=== PATIENT | female | born 1960 | race Caucasian/White ===

== ENCOUNTER 2016-11-26 14:10 | Emergency (ER) | payer MEDICARE ==
[2016-11-26] MEDS ORDERED: Metoprolol Tartrate 50 MG TAB ONE (15:02)
[2016-11-26] MEDS ORDERED: Ondansetron ODT 4 MG TAB ONE (15:02)
[2016-11-26] MEDS ORDERED: methylPREDNISolone Sod Succ/PF 125 MG/2 ML VIAL ONE (15:02)
--- NOTE | 2016-11-26 15:46 | ERRECORD ---
[facility] EMERGENCY RECORD HPI COUGH (14:46 RWAG) CHIEF COMPLAINT: Patient presents for evaluation of cough, productive of white sputum. HISTORIAN: History provided by patient, Dx flu 2weels ago. "cough and nausea for two weeks". LOCATION: Symptoms are generalized. QUALITY: Unable to describe the quality of the pain. SEVERITY: Maximum severity of symptoms mild, Currently symptoms are mild, Maximum severity of pain rated as 2/10, Current severity of pain rated as 2/10. TIME COURSE: Patient unable to describe onset of symptoms, There has been no change in the patient's symptoms over time. ASSOCIATED WITH: Associated with nausea. EXACERBATED BY: Patient's condition exacerbated by nothing. RELIEVED BY: Patient's condition relieved by nothing. ROS (14:49 RWAG) CONSTITUTIONAL: Historian reports chills. EYES: Negative eye review of systems. ENT: Negative ears, nose, throat review of systems. CARDIOVASCULAR: Negative cardiovascular review of systems. RESPIRATORY: Negative respiratory review of systems. GI: Historian reports nausea. GENITOURINARY FEMALE: Negative genitourinary review of systems. MUSCULOSKELETAL: Negative musculoskeletal review of systems. SKIN: Negative skin review of systems. NEUROLOGIC: Negative neurologic review of systems. ENDOCRINE: Negative endocrine review of systems. HEMO/LYMPHATIC: Normal hematologic/lymphatic system review. ALLERGIC/IMMUNOLOGIC: Normal allergy/immunologic system review. PSYCHIATRIC: Negative psychiatric review of systems. NOTES: All systems reviewed, negative except as described above. PAST MEDICAL HISTORY (14:31 [facility]) MEDICAL HISTORY: Flu vaccine up to date, Tetanus not up to date, Pneumococcal vaccine up to date, Past medical history includes cardiac history, history of hyperlipidemia. high cholesterol, Past medical history includes history of hypertension, Past medical history includes cardiac history, coronary artery disease, Past medical history includes history of diabetes, Past medical history includes gastrointestinal disease, hiatal hernia, Past medical history includes history of hyperlipidemia, high cholesterol, currently being treated, Past medical history includes history of hypertension, which has been treated, Past medical history includes history of obesity. CONSTIPATION,. FEMALE SURGICAL HISTORY: veins stripping, vericous veins, cleft palate. PSYCHIATRIC HISTORY: Notes: nervous breakdown . &a-1R&a+25V*p+0X*[id number]*c202B*c15G*c2P*p-0X&a-25V&a+1R Name: Tania Saldivar : 1960 F56 MedRec[id number] [id number] Prepared: TueNov 26, 2016 16:18 by Interface Page 1 of 4 pMD [facility] EMERGENCY RECORD SOCIAL HISTORY: Patient denies alcohol use, Patient denies drug use, Patient has no smoking history, Lives at home, with family. KNOWN ALLERGIES Penicillins: Reaction: Hives, Severity: Moderate, Source: Patient CURRENT MEDICATIONS atorvastatin: TABLET : Strength - 40 mg : ORAL Patient Dose: 40 mg Oral once a day (at bedtime). (14:24 CJEF) carvedilol: TABLET : Strength - 25 mg : ORAL Patient Dose: 1 tab(s) Oral 2 times a day. (14: CJEF) hydrochlorothiazide: TABLET : Strength - 25 mg : ORAL Patient Dose: 1 tab(s) Oral once a day. (14: CJEF) hydrALAZINE: TABLET : Strength - 50 mg : ORAL Patient Dose: 50 mg Oral 3 times a day. (14: CJEF) cloNIDine HCl: TABLET : Strength - 0.1 mg : ORAL Patient Dose: 1 tab(s) Oral 2 times a day.AND NEEDED FOR HIGH BP. (14: CJEF) lactulose: SOLUTION, ORAL : Strength - 10 gram/15 mL (15 mL) : ORAL Patient Dose: 2 times a day. NEEDED. (14: CJEF) metFORMIN: TABLET : Strength - 500 mg : ORAL Patient Dose: 1 tab(s) Oral 2 times a day. (14: CJEF) omeprazole: CAPSULE,DELAYED RELEASE (ENTERIC COATED) : Strength - 40 mg : ORAL Patient Dose: 1 cap(s) Oral once a day. (14: CJEF) losartan: TABLET : Strength - 100 mg : ORAL Patient Dose: 1 tab(s) Oral once a day. (14: CJEF) levothyroxine: TABLET : Strength - 300 mcg : ORAL Patient Dose: 1 tab(s) Oral once a day (in the morning). (14: CJEF) naproxen: TABLET : Strength - 500 mg : ORAL Patient Dose: 1 tab(s) Oral once a day. (14:28 CJEF) TOULEO SOLOSTAR: Patient Dose: 60 units Subcutaneous once a day.300 UNITS/ML. (14:29 CJEF) Victoza 2-Paulo: PEN INJECTOR (ML) : Strength - 0.6 mg/0.1 mL (18 mg/3 mL) : [3 mL(s)] : SUBCUTANEOUS &a-1R&a+25V*p+0X*[id number]*c202B*c15G*c2P*p-0X&a-25V&a+1R Name: Tania Saldivar : 1960 F56 MedRec: [id number] AcctNum: [id number] Prepared: TueNov 26, 2016 16:18 by Interface Page 2 of 4 pMD [facility] EMERGENCY RECORD Patient Dose: 1.2 units Subcutaneous once a day (at bedtime). (14:29 CJEF) VITAL SIGNS VITAL SIGNS: BP: 157/96, Pulse: 113, Resp: 18, Temp: 97.6 (Oral), Pain: 2, O2 sat: 92 on Room Air, Time: 11/26/2016 14:20. (14:20 CJEF) BP: 166/93, Pulse: 108, Resp: 18, Pain: 2, O2 sat: 95 on Face mask, Time: 11/26/2016 15:17. (15:17 CJEF) BP: 168/96, Pulse: 101, Resp: 18, Temp: 98.1 (Oral), Pain: 2, O2 sat: 95 on Room Air, Time: 11/26/2016 15:35. (15:35 CJEF) PHYSICAL EXAM (14:50 RW) CONSTITUTIONAL: Vital Signs Reviewed, Abnormal Pulse Oximetry, 92%. HEAD: Head exam normal. EYES: Eye exam normal. ENT: ENT exam normal. NECK: Neck exam normal. RESPIRATORY CHEST: Respiratory and chest exam normal. CARDIOVASCULAR: Cardiovascular assessment normal. ABDOMEN FEMALE: Abdominal exam normal. BACK: Back exam normal. UPPER EXTREMITY: Upper extremity exam normal. NEURO: Neuro exam normal. SKIN: Skin exam normal. LYMPHATIC: Lymphatic exam normal. PSYCHIATRIC: Psychiatric exam normal. MEDICATION ADMINISTRATION SUMMARY Drug Name: *DuoNeb, Dose Ordered: 3 mL, Route: Nebulize, Status: Given, Time: 15:16 11/26/2016, Drug Name: methylPREDNISolone sodium succ injection, Dose Ordered: 125 mg, Route: Intramuscular, Status: Given, Time: 15:16 11/26/2016, Drug Name: Levaquin oral, Dose Ordered: 750 mg, Route: Oral, Status: Given, Time: 15:15 11/26/2016, Drug Name: *Zofran ODT, Dose Ordered: 1 tab(s), Route: Oral, Status: Given, Time: 15:15 11/26/2016, Drug Name: meTOPROLOL tartrate oral, Dose Ordered: 1 tab(s), Route: Oral, Status: Given, Time: 15:15 11/26/2016, *Additional information available in notes, Detailed record available in Medication Service section. PROBLEM LIST No recorded problems DIAGNOSIS (: RWAG) FINAL: PRIMARY: Acute bronchitis. PRESCRIPTION &a-1R&a+25V*p+0X*r0598T*c202B*c15G*c2P*p-0X&a-25V&a+1R Name: Tania Saldivar : 1960 F56 MedRec: [id number] AcctNum: [id number] Prepared: TueNov 26, 2016 16:18 by Interface Page 3 of 4 pMD [facility] EMERGENCY RECORD Levaquin oral: TABLET : 750 mg : ORAL : Quantity: 1 Unit: tab(s) Route: ORAL Schedule: once a day (in the morning) Dispense: 10 Unit: tab(s) May substitute. Refills: No Refills . (15:13 RWAG) NOTES: No Refills. (15: RWAG) Proventil HFA: HFA AEROSOL WITH ADAPTER (GRAM) : 90 mcg : INHALATION : Quantity: 1 Unit: puff(s) Route: INHALATION Schedule: every 4 hours prn Dispense: 1 Unit: inhalation May substitute. Refills: No Refills . (15:13 RWAG) NOTES: one inhaler No Refills. (15:13 RWAG) Zofran ODT: TABLET,DISINTEGRATING : 8 mg : ORAL : Quantity: 1 Unit: tab(s) Route: ORAL Schedule: every 8 hours PRN Dispense: 1 Unit: tab(s) May substitute. Refills: No Refills . (15:14 RWAG) NOTES: No Refills. (15:14 RWAG) DISPOSITION PATIENT: Disposition Type: Discharge, Disposition: *Discharge Home, Disposition Transport: Car, Condition: Improved. (15:15 RWAG) Patient left the department. (15:36 CJ) Bansal: CJEF=ERIN Mahoney, Lizbeth RWAG=MD Federico, Jarocho &a-1R&a+25V*p+0X*[id number]*c202B*c15G*c2P*p-0X&a-25V&a+1R Name: Tania Saldivar : 1960 F56 MedRec: [id number] AcctNum: [id number] Prepared: TueNov 26, 2016 16:18 by Interface Page 4 of 4 pMD MTDD
--- NOTE | 2016-11-26 15:51 | PICIS ---
[facility] EMERGENCY RECORD TRIAGE (14:23 CJEF) TRIAGE NOTES: PT REPORTS FLU X3 WEEKS THAT HAS BEEN INTERMITTENT. PT WAS DX WITH FLU X2 WEEKS AGO. PT POOR HISTORIAN. PT REPORTS VOMITING, NAUSEA, FATIGUE, BODY ACHES, CHILLS, DIAPHORESIS THAT IS INTERMITTENT. PT REPORTS COUGHING THAT IS PRODUCTIVE PRODUCING WHITE PHLEM. (14:23 CJEF) PATIENT: NAME: Tania Saldivar, AGE: 56, GENDER: female, : Patricia 1960, TIME OF GREET: TueNov 26, 2016 14:11, PREFERRED LANGUAGE: Tamazight, ETHNICITY: Not or , FALL RISK: NO, ECODE BILLING MAP: [facility], SSN: [id number], Zip Code: [address], KG WEIGHT: [phone], PHONE: , , , PERSON ID: [id number], PCP: [facility]. (14:23 CJEF) COMPLAINT: FLU SYMPTOMS. (14:23 CJEF) ADMISSION: URGENCY: 4 Non Urgent, ADMISSION SOURCE: Home, TRANSPORT: Walk-in, BED: TRIAGE. (14:23 CJEF) ASSESSMENT: Assessment: FLU LIKE SYMPTOMS. (14:31 CJEF) PAIN: Patient complains of pain described as, Location BODY ACHES. (14:31 CJEF) IMMUNIZATIONS: Flu vaccine up to date, Tetanus not up to date, Pneumococcal vaccine up to date. (14:31 CJEF) SIRS SCORING: Heart Rate 110-139 (2), Temp range 96.8-101.1 (0), respiratory rate 12-24 (0), Mental Status altered: no (0), Total SIRS Score 2, Yes, Infection or Suspected Infection. (14:31 CJEF) SIRS NOTIFICATION: Yes, Infection or Suspected Infection. (14:31 CJEF) TRIAGE SCREENING: Patient denies suicidal ideation, Patient denies presence of domestic violence. (14:31 CJEF) PROVIDERS: TRIAGE NURSE: Lizbeth Mahoney RN. (14:23 CJEF) VITAL SIGNS: BP 157/96, Pulse 113, Resp 18, Temp 97.6, (Oral), Pain 2, O2 Sat 92, on Room Air, Time 11/26/2016 14:20. (14:20 CJEF) PREVIOUS VISIT ALLERGIES: Penicillins. (14:23 CJEF) Penicillins. (14:31 CJEF) KNOWN ALLERGIES Penicillins: Reaction: Hives, Severity: Moderate, Source: Patient CURRENT MEDICATIONS atorvastatin: TABLET : Strength - 40 mg : ORAL Patient Dose: 40 mg Oral once a day (at bedtime). (14:24 CJEF) carvedilol: TABLET : Strength - 25 mg : ORAL Patient Dose: 1 tab(s) Oral 2 times a day. (14:25 CJEF) hydrochlorothiazide: TABLET : Strength - 25 mg : ORAL Patient Dose: 1 tab(s) Oral once a day. (14:25 CJEF) hydrALAZINE: &a-1R&a+25V*p+0X*c5711S*c202B*c15G*c2P*p-0X&a-25V&a+1R Name: Tania Saldivar : 1960 F56 MedRec: [id number] AcctNum: [id number] Prepared: TueNov 26, 2016 16:23 by Interface Page [address] [facility] EMERGENCY RECORD TABLET : Strength - 50 mg : ORAL Patient Dose: 50 mg Oral 3 times a day. (14:25 CJEF) cloNIDine HCl: TABLET : Strength - 0.1 mg : ORAL Patient Dose: 1 tab(s) Oral 2 times a day.AND NEEDED FOR HIGH BP. (14:26 CJEF) lactulose: SOLUTION, ORAL : Strength - 10 gram/15 mL (15 mL) : ORAL Patient Dose: 2 times a day. NEEDED. (14:27 CJEF) metFORMIN: TABLET : Strength - 500 mg : ORAL Patient Dose: 1 tab(s) Oral 2 times a day. (14:27 CJEF) omeprazole: CAPSULE,DELAYED RELEASE (ENTERIC COATED) : Strength - 40 mg : ORAL Patient Dose: 1 cap(s) Oral once a day. (14:27 CJEF) losartan: TABLET : Strength - 100 mg : ORAL Patient Dose: 1 tab(s) Oral once a day. (14:27 CJEF) levothyroxine: TABLET : Strength - 300 mcg : ORAL Patient Dose: 1 tab(s) Oral once a day (in the morning). (14:28 CJEF) naproxen: TABLET : Strength - 500 mg : ORAL Patient Dose: 1 tab(s) Oral once a day. (14:28 CJEF) TOULEO SOLOSTAR: Patient Dose: 60 units Subcutaneous once a day.300 UNITS/ML. (14:29 CJEF) Victoza 2-Paulo: PEN INJECTOR (ML) : Strength - 0.6 mg/0.1 mL (18 mg/3 mL) : [3 mL(s)] : SUBCUTANEOUS Patient Dose: 1.2 units Subcutaneous once a day (at bedtime). (14:29 CJEF) VITAL SIGNS VITAL SIGNS: BP: 157/96, Pulse: 113, Resp: 18, Temp: 97.6 (Oral), Pain: 2, O2 sat: 92 on Room Air, Time: 11/26/2016 14:20. (14:20 CJEF) BP: 166/93, Pulse: 108, Resp: 18, Pain: 2, O2 sat: 95 on Face mask, Time: 11/26/2016 15:17. (15:17 CJEF) BP: 168/96, Pulse: 101, Resp: 18, Temp: 98.1 (Oral), Pain: 2, O2 sat: 95 on Room Air, Time: 11/26/2016 15:35. (15:35 CJEF) NURSING ASSESSMENT: ENT (14:39 CJEF) CONSTITUTIONAL: Complex assessment performed, Patient arrives ambulatory, Gait steady, History obtained from patient, Patient appears, generally ill, Patient cooperative, Patient alert, Oriented to person, place and time, Skin warm, Skin dry, Skin normal in color, Mucous membranes pink, Mucous membranes moist, Patient is well-groomed, PT REPORTS FLU X3 WEEKS THAT HAS BEEN INTERMITTENT. PT WAS DX WITH FLU X2 WEEKS AGO. PT POOR HISTORIAN. PT &a-1R&a+25V*p+0X*c2114I*c202B*c15G*c2P*p-0X&a-25V&a+1R Name: Tania Saldivar : 1960 F56 MedRec: [id number] AcctNum: [id number] Prepared: TueNov 26, 2016 16:23 by Interface Page [address] [facility] EMERGENCY RECORD REPORTS VOMITING, NAUSEA, FATIGUE, BODY ACHES, CHILLS, DIAPHORESIS THAT IS INTERMITTENT. PT REPORTS COUGHING THAT IS PRODUCTIVE PRODUCING WHITE PHLEM. PAIN: aching pain, BODY ACHES, on a scale 0-10 patient rates pain as 2. ENT: Ear assessment findings include ear normal to inspection, Nasal assessment findings include nose normal to inspection, Discharge, Congestion, bilaterally, Mouth and throat assessment findings include mouth inspection normal. RESPIRATORY/CHEST: Breath sounds clear, Respiratory assessment findings include respiratory effort easy, Respirations regular, Conversing normally, Neck and chest exam findings include trachea midline, Chest expansion equal, Chest movement symmetrical, no signs of distress, Associated with cough, productive of, white sputum, Associated with fever, POSSIBLE FEVER, UNKNOWN TEMP. NOTES: Patient tolerated procedure well. SAFETY: Side rails up, Cart/Stretcher in lowest position, Family at bedside, Call light within reach, Hospital ID band on. NURSING PROCEDURE: BEDSIDE RADIOLOGY (14:39 CJEF) PATIENT IDENTIFIER: Patient actively involved in identification process, Patient's identity verified by patient stating name, Patient's identity verified by patient stating date. BEDSIDE RADIOLOGY: Portable chest x-ray performed. NOTES: Patient tolerated procedure well. SAFETY: Side rails up, Cart/Stretcher in lowest position, Family at bedside, Call light within reach, Hospital ID band on. NURSING PROCEDURE: DISCHARGE NOTE (15:35 CJEF) DISCHARGE: Patient discharged to home, ambulating without assistance, family driving, accompanied by //partner, Summary of Care printed/ provided, Patient requested and was provided an electronic copy of Discharge Instructions, Transition record given to patient, Discharge instructions given to patient, Simple or moderate discharge teaching performed, Prescriptions given and instructions on side effects given, Medication reconciliation form given, Above person(s) verbalized understanding of discharge instructions and follow-up care, Patient treated and evaluated by physician. BELONGINGS: Belongings remain with patient. NOTES: Patient tolerated procedure well. SAFETY: Side rails up, Cart/Stretcher in lowest position, Family at bedside, Call light within reach, Hospital ID band on. NURSING PROCEDURE: NURSE NOTES (15:26 CJEF) NURSES NOTES: Patient in no apparent distress, Patient resting quietly, Notes: PT RESTING IN BED QUIETLY WITH FAMILY AT BEDSIDE. NO DISTRESS NOTED. &a-1R&a+25V*p+0X*l6990F*c202B*c15G*c2P*p-0X&a-25V&a+1R Name: Tania Saldivar : 1960 F56 MedRec: [id number] AcctNum: [id number] Prepared: TueNov 26, 2016 16:23 by Interface Page [address] [facility] EMERGENCY RECORD NURSING PROCEDURE: OXYGEN THERAPY (15:17 CJEF) PATIENT IDENTIFIER: Patient actively involved in identification process, Patient's identity verified by patient stating name, Patient's identity verified by patient stating date. OXYGEN THERAPY: Prior to procedure, breath sounds clear, Notes: PT STARTED ON DUO NEB AT 6LPM. FOLLOW-UP: After procedure, oxygen saturation 97%. NOTES: Patient tolerated procedure well. SAFETY: Side rails up, Cart/Stretcher in lowest position, Family at bedside, Call light within reach, Hospital ID band on. ORDER DETAILS Order Name: XR Chest 1 View Portable, Status: Active, Time: 14:33 11/26/2016, User: [facility], - Ordered for: MD Federico, Jarocho, - Entered by: MD Caballero Richard - TueNov 26, 2016 14:33, - Quantity: 1. MEDICATION ADMINISTRATION SUMMARY Drug Name: *DuoNeb, Dose Ordered: 3 mL, Route: Nebulize, Status: Given, Time: 15:16 11/26/2016, Drug Name: methylPREDNISolone sodium succ injection, Dose Ordered: 125 mg, Route: Intramuscular, Status: Given, Time: 15:16 11/26/2016, Drug Name: Levaquin oral, Dose Ordered: 750 mg, Route: Oral, Status: Given, Time: 15:15 11/26/2016, Drug Name: *Zofran ODT, Dose Ordered: 1 tab(s), Route: Oral, Status: Given, Time: 15:15 11/26/2016, Drug Name: meTOPROLOL tartrate oral, Dose Ordered: 1 tab(s), Route: Oral, Status: Given, Time: 15:15 11/26/2016, *Additional information available in notes, Detailed record available in Medication Service section. MEDICATION SERVICE DuoNeb: Order: DuoNeb (ipratropium bromide/albuterol sulfate) - Dose: 3 mL : Nebulize Schedule: Now Notes: (0.5mg Ipratropium [place]/3mg Albuterol Sulfate = 3ml) Ordered by: Jarocho Caballero MD Entered by: Jarocho Caballero MD TueNov 26, 2016 14:34 , Acknowledged by: Lizbeth Mahoney RN TueNov 26, 2016 15:05 Documented as given by: Lizbeth Mahoney RN TueNov 26, 2016 15:16 Patient, Medication, Dose, Route and Time verified prior to administration. Amount given: 3 ML, Site: Medication administered via Hand-held nebulizer, With oxygen, Correct patient, time, route, dose and medication confirmed prior to administration, Patient advised of actions and side-effects prior to administration, Allergies confirmed and medications reviewed prior to administration, Patient tolerated &a-1R&a+25V*p+0X*m5368Y*c202B*c15G*c2P*p-0X&a-25V&a+1R Name: Tania Saldivar : 1960 F56 MedRec: [id number] AcctNum: [id number] Prepared: TueNov 26, 2016 16:23 by Interface Page [address] [facility] EMERGENCY RECORD procedure well, Patient in position of comfort, Side rails up, Cart in lowest position, Family at bedside. : Follow Up : Response assessment performed, No signs or symptoms of allergic reaction noted, Advised not to ambulate without assistance, Patient in position of comfort, Side rails up, Cart in lowest position, Family at bedside. (15:27 [facility]) Levaquin oral: Order: Levaquin oral (levofloxacin) - Dose: 750 mg : Oral Schedule: Now Ordered by: Jarocho Caballero MD Entered by: Jarocho Caballero MD TueNov 26, 2016 14:34 , Acknowledged by: Lizbeth Mahoney RN TueNov 26, 2016 15:06 Documented as given by: Lizbeth Mahoney RN TueNov 26, 2016 15:15 Patient, Medication, Dose, Route and Time verified prior to administration. Amount given: 750 MG, Site: Medication administered P.O., Mouth check performed after administration of medication, Patient appears Awake and alert- acceptable, Correct patient, time, route, dose and medication confirmed prior to administration, Patient advised of actions and side-effects prior to administration, Allergies confirmed and medications reviewed prior to administration, Patient tolerated procedure well, Patient in position of comfort, Side rails up, Cart in lowest position, Family at bedside. : Follow Up : Response assessment performed, No signs or symptoms of allergic reaction noted, Advised not to ambulate without assistance, Patient in position of comfort, Side rails up, Cart in lowest position, Family at bedside. (15:26 [facility]) methylPREDNISolone sodium succ injection: Order: methylPREDNISolone sodium succ injection (methylprednisolone sod succ) - Dose: 125 mg : Intramuscular Schedule: Now Ordered by: Jarocho Caballero MD Entered by: Jarocho Caballero MD TueNov 26, 2016 14:34 , Acknowledged by: Lizbeth Mahoney RN TueNov 26, 2016 15:04 Documented as given by: Lizbeth Mahoney RN TueNov 26, 2016 15:16 Patient, Medication, Dose, Route and Time verified prior to administration. IM medication, Amount given: 125MG, Medication administered to right buttock, Patient appears Awake and alert- acceptable, Correct patient, time, route, dose and medication confirmed prior to administration, Patient advised of actions and side-effects prior to administration, Allergies confirmed and medications reviewed prior to administration, Patient tolerated procedure well, Patient in position of comfort, Side rails up, Cart in lowest position, Family at bedside. : Follow Up : Response assessment performed, No signs or symptoms of allergic reaction noted, Advised not to ambulate without assistance, Patient in position of comfort, Side rails up, Cart in lowest position, Family at bedside. (15:26 [facility]) meTOPROLOL tartrate oral: Order: meTOPROLOL tartrate oral &a-1R&a+25V*p+0X*r8388B*c202B*c15G*c2P*p-0X&a-25V&a+1R Name: Taina Saldivar Kika : 1960 F56 MedRec: [id number] AcctNum: [id number] Prepared: TueNov 26, 2016 16:23 by Interface Page [address] [facility] EMERGENCY RECORD (metoprolol tartrate) - Dose: 1 tab(s) : Oral POTENTIAL SEVERE INTERACTION: cloNIDine HCl - Patient tolerated similar in past Schedule: Now Ordered by: Jarocho Caballero MD Entered by: Jarocho Caballero MD TueNov 26, 2016 14:36 , Acknowledged by: Lizbeth Mahoney RN TueNov 26, 2016 15:06 Documented as given by: Lizbeth Mahoney RN TueNov 26, 2016 15:15 Patient, Medication, Dose, Route and Time verified prior to administration. Amount given: 50MG, Site: Medication administered P.O., Mouth check performed after administration of medication, Patient appears Awake and alert- acceptable, Correct patient, time, route, dose and medication confirmed prior to administration, Patient advised of actions and side-effects prior to administration, Allergies confirmed and medications reviewed prior to administration, Patient tolerated procedure well, Patient in position of comfort, Side rails up, Cart in lowest position, Family at bedside. : Follow Up : Response assessment performed, No signs or symptoms of allergic reaction noted. (15:26 [facility]) Zofran ODT: Order: Zofran ODT (ondansetron) - Dose: 1 tab(s) : Oral Schedule: Now Notes: 8mg Ordered by: Jarocho Caballero MD Entered by: Jarocho Caballero MD TueNov 26, 2016 14:35 , Acknowledged by: Lizbeth Mahoney RN TueNov 26, 2016 15:05 Documented as given by: Lizbeth Mahoney RN TueNov 26, 2016 15:15 Patient, Medication, Dose, Route and Time verified prior to administration. Amount given: 8 MG, Site: Medication administered S.L., Mouth check performed after administration of medication, Patient appears Awake and alert- acceptable, Correct patient, time, route, dose and medication confirmed prior to administration, Patient advised of actions and side-effects prior to administration, Allergies confirmed and medications reviewed prior to administration, Patient tolerated procedure well, Patient in position of comfort, Side rails up, Cart in lowest position, Family at bedside. : Follow Up : Response assessment performed, No signs or symptoms of allergic reaction noted, Advised not to ambulate without assistance, Patient in position of comfort, Side rails up, Cart in lowest position, Family at bedside. (15:26 [facility]) HPI COUGH (14:46 RW) CHIEF COMPLAINT: Patient presents for evaluation of cough, productive of white sputum. HISTORIAN: History provided by patient, Dx flu 2weels ago. "cough and nausea for two weeks". LOCATION: Symptoms are generalized. QUALITY: Unable to describe the quality of the pain. SEVERITY: Maximum severity &a-1R&a+25V*p+0X*d1655Z*c202B*c15G*c2P*p-0X&a-25V&a+1R Name: Tania Saldivar : 1960 F56 MedRec: [id number] AcctNum: [id number] Prepared: TueNov 26, 2016 16:23 by Interface Page [address] [facility] EMERGENCY RECORD of symptoms mild, Currently symptoms are mild, Maximum severity of pain rated as 2/10, Current severity of pain rated as 2/10. TIME COURSE: Patient unable to describe onset of symptoms, There has been no change in the patient's symptoms over time. ASSOCIATED WITH: Associated with nausea. EXACERBATED BY: Patient's condition exacerbated by nothing. RELIEVED BY: Patient's condition relieved by nothing. ROS (14:49 RW) CONSTITUTIONAL: Historian reports chills. EYES: Negative eye review of systems. ENT: Negative ears, nose, throat review of systems. CARDIOVASCULAR: Negative cardiovascular review of systems. RESPIRATORY: Negative respiratory review of systems. GI: Historian reports nausea. GENITOURINARY FEMALE: Negative genitourinary review of systems. MUSCULOSKELETAL: Negative musculoskeletal review of systems. SKIN: Negative skin review of systems. NEUROLOGIC: Negative neurologic review of systems. ENDOCRINE: Negative endocrine review of systems. HEMO/LYMPHATIC: Normal hematologic/lymphatic system review. ALLERGIC/IMMUNOLOGIC: Normal allergy/immunologic system review. PSYCHIATRIC: Negative psychiatric review of systems. NOTES: All systems reviewed, negative except as described above. PAST MEDICAL HISTORY (14:31 CJ) MEDICAL HISTORY: Flu vaccine up to date, Tetanus not up to date, Pneumococcal vaccine up to date, Past medical history includes cardiac history, history of hyperlipidemia. high cholesterol, Past medical history includes history of hypertension, Past medical history includes cardiac history, coronary artery disease, Past medical history includes history of diabetes, Past medical history includes gastrointestinal disease, hiatal hernia, Past medical history includes history of hyperlipidemia, high cholesterol, currently being treated, Past medical history includes history of hypertension, which has been treated, Past medical history includes history of obesity. CONSTIPATION,. FEMALE SURGICAL HISTORY: veins stripping, vericous veins, cleft palate. PSYCHIATRIC HISTORY: Notes: nervous breakdown 1980s. SOCIAL HISTORY: Patient denies alcohol use, Patient denies drug use, Patient has no smoking history, Lives at home, with family. PHYSICAL EXAM (14:50 RW) CONSTITUTIONAL: Vital Signs Reviewed, Abnormal Pulse Oximetry, 92%. &a-1R&a+25V*p+0X*b7978W*c202B*c15G*c2P*p-0X&a-25V&a+1R Name: Tania Saldivar : 1960 F56 MedRec: [id number] AcctNum: [id number] Prepared: TueNov 26, 2016 16:23 by Interface Page [address] [facility] EMERGENCY RECORD HEAD: Head exam normal. EYES: Eye exam normal. ENT: ENT exam normal. NECK: Neck exam normal. RESPIRATORY CHEST: Respiratory and chest exam normal. CARDIOVASCULAR: Cardiovascular assessment normal. ABDOMEN FEMALE: Abdominal exam normal. BACK: Back exam normal. UPPER EXTREMITY: Upper extremity exam normal. NEURO: Neuro exam normal. SKIN: Skin exam normal. LYMPHATIC: Lymphatic exam normal. PSYCHIATRIC: Psychiatric exam normal. EVENTS TRANSFER: Triage to Emergency Triage. (TueNov 26, 2016 14:23 CJ) Emergency Triage to Main ED -04. (14:31 CJ) Removed from Emergency Main ED -04. (15:36 CJ) PROBLEM LIST No recorded problems DIAGNOSIS (15:15 RWAG) FINAL: PRIMARY: Acute bronchitis. DISPOSITION PATIENT: Disposition Type: Discharge, Disposition: *Discharge Home, Disposition Transport: Car, Condition: Improved. (15:15 RWAG) Patient left the department. (15:36 [facility]) INSTRUCTION (15:15 RWAG) DISCHARGE: BRONCHITIS W/ WHEEZING (ADULT). FOLLOWUP: Follow up with Primary Care Physician in 3-4 days. SPECIAL: Follow-up with your PCP. PRESCRIPTION Levaquin oral: TABLET : 750 mg : ORAL : Quantity: 1 Unit: tab(s) Route: ORAL Schedule: once a day (in the morning) Dispense: 10 Unit: tab(s) May substitute. Refills: No Refills . (15:13 RWAG) NOTES: No Refills. (15:13 RWAG) Proventil HFA: HFA AEROSOL WITH ADAPTER (GRAM) : 90 mcg : INHALATION : Quantity: 1 Unit: puff(s) Route: INHALATION Schedule: every 4 hours prn Dispense: 1 Unit: inhalation May substitute. Refills: No Refills . (15:13 RWAG) NOTES: one inhaler No Refills. (15:13 RWAG) Zofran ODT: TABLET,DISINTEGRATING : 8 mg : ORAL : Quantity: 1 Unit: tab(s) Route: ORAL Schedule: every 8 hours PRN Dispense: &a-1R&a+25V*p+0X*e1768J*c202B*c15G*c2P*p-0X&a-25V&a+1R Name: Tania Saldivar : 1960 F56 MedRec: [id number] AcctNum: [id number] Prepared: TueNov 26, 2016 16:23 by Interface Page [address] [facility] EMERGENCY RECORD 1 Unit: tab(s) May substitute. Refills: No Refills . (15:14 RWAG) NOTES: No Refills. (15:14 RWAG) IMAGING (15:37 CJ) *DISCHARGE INSTRUCTIONS RECEIPT: Image captured from scanner. *SUPPLY CHARGE SHEET: Image captured from scanner. ADMIN (16:14 RWAG) DIGITAL SIGNATURE: MD Federico, Jarocho. Bansal: CJEF=ERIN Mahoney, Lizbeth RWAG=MD Caballero Richard &a-1R&a+25V*p+0X*v8444I*c202B*c15G*c2P*p-0X&a-25V&a+1R Name: Tania Saldivar : 1960 F56 MedRec: [id number] AcctNum: [id number] Prepared: TueNov 26, 2016 16:23 by Interface Page 9 of 9 pMD [facility]
--- NOTE | 2016-11-26 17:44 | RAD ---
CHEST ONE VIEW 11/26/16 HISTORY: Cough. COMPARISON: 07/07/13 FINDINGS: The cardiac silhouette is magnified by projection. Pulmonary vasculature is accentuated by shallow i nspiration. Mediastinum is midline. There is no confluent air space consolidation or evidence of pne umothorax. IMPRESSION: No active cardiopulmonary abnormalities are demonstrated. POS: [facility]
== END 2016-11-26 15:36 | disposition home or self-care (01) ==
LOC: MADERS 14:10
DX: J20.9 Acute bronchitis, unspecified (principal); E78.5 Hyperlipidemia, unspecified; E11.9 Type 2 diabetes mellitus without complications; I10 Essential (primary) hypertension
CPT/HCPCS: 71010; 96372; J2930; J7620; Q0162

== ENCOUNTER 2016-12-02 09:35 | Emergency (ER) | payer MEDICARE ==
[2016-12-02] MEDS ORDERED: Acetaminophen/Codeine 30-300mg Tablet ONE (10:00)
[2016-12-02] MEDS ORDERED: Diazepam 5 MG TAB ONE (10:00)
--- NOTE | 2016-12-02 10:26 | RAD ---
THREE VIEWS RIGHT SHOULDER: Indication: Right shoulder pain after trauma. FINDINGS: There is moderate AC joint osteoarthrosis. Visualized right lung is clear. No acute fracture or miranda bluxation is evident. IMPRESSION: 1. No acute fracture or subluxation is evident. 2. Moderate AC joint osteoarthrosis. POS: [facility]
--- NOTE | 2016-12-02 10:30 | RAD ---
FOUR VIEWS CERVICAL SPINE: Indication: Trauma to the neck; heavy boxes fell on head and neck region one week ago, with neck pa in. FINDINGS: There is slight irregularity involving the anterior cortex of C2 seen on both the swimmer's lateral and direct lateral views of the cervical spine. No definite trabecular disruption is evident on ope n mouth odontoid views. Prevertebral soft tissues appear relatively well maintained. There is mult ilevel disc degenerative disease most pronounced at C5-6. Lung apices are clear. IMPRESSION: 1. Slight cortical irregularity involving the anterior aspect of the body of C2 may reflect a nondi splaced C2 dens fracture or congential variant. Recommend dedicated CT of the cervical spine for ad ditional characterization. 2. Findings were discussed with Dr. Santiago at 10:20 a.m. on 12-02-16. 3. Mild to moderate spondylosis of the cervical spine. POS: [facility]
--- NOTE | 2016-12-02 11:21 | CT ---
NONCONTRAST CT OF THE CERVICAL SPINE: Indication: Box fell on shoulder and neck, now with neck pain. Comparison: Cervical spine radiograph dated 12-02-16. FINDINGS: No acute fracture or subluxation is evident. There is a moderate multilevel spondylosis of the lumb ar spine most pronounced at C5-6 and C6-7. Spinal alignment appears within normal limits. There is at least mild osseous central canal narrowing at C4-5 due to a broad based disc osteophyte complex. Broad based disc osteophyte complexes at C5-6 likely induces mild to moderate osseous central jeana l narrowing. There is at least mild osseous central canal narrowing at C6-7 due to broad based disc osteophyte complex. 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 There is an air fluid level within the right maxillary sinus. Visualized lung apices are clear. IMPRESSION: 1. No acute fracture or subluxation is evident. There is irregularity involving anterior cortex of the body of the C2, likely projectional in nature. 2. Moderate multilevel spondylosis with multilevel osseous central canal narrowing as detailed joseph alexandre. 3. Air fluid level within the right maxillary sinus is nonspecific and may be related to acute sinu sitis. Recommend correlation. POS: [facility]
--- NOTE | 2016-12-02 11:32 | ERRECORD ---
[facility] EMERGENCY RECORD HPI TRAUMA (09:59 LLDO) CHIEF COMPLAINT: Patient presents for evaluation of trauma, Patient presents for evaluation of decreased range of motion, Patient presents for evaluation of decreased use, Patient presents for evaluation of injury, Patient presents for evaluation of pain, Patient presents for evaluation of see triage note. box of hardware fell on her right neck and shoulder 5 days ago and pt is still having pain and reduced rom of neck and shoulder since. very hard to sleep at night. HISTORIAN: History provided by patient, History provided by patient's spouse. MECHANISM OF INJURY: Mechanism of injury: Blunt trauma. LOCATION: Symptoms are localized. QUALITY: Pain is dull in nature, described as aching. SEVERITY: Maximum severity of symptoms moderate, Currently symptoms are moderate. TIME COURSE: Sudden onset of symptoms, There has been no change in the patient's symptoms over time, are constant. ASSOCIATED WITH: Associated with neck pain, Associated with shoulder pain, on the right, Associated with contusion(s), No associated symptoms. EXACERBATED BY: Patient's condition exacerbated by ANY MOVEMENT OR PALPATION. RELIEVED BY: Patient's condition relieved by rest. RISK FACTORS: No risk factors for spinal injury, No risk factors for intracranial bleed. ROS CONSTITUTIONAL: Negative constitutional review of systems. (10:04 LLDO) EYES: Negative eye review of systems, Historian denies eye pain, denies eye redness, denies eye discharge. (10:10 LLDO) ENT: Negative ears, nose, throat review of systems, Historian denies epistaxis, denies rhinorrhea, denies sinus pain, denies sore throat. (10:10 LLDO) MUSCULOSKELETAL: Historian reports arthralgias, reports injury, reports myalgias, reports neck pain. ONLY IN HPI. (10:04 LLDO) SKIN: Negative skin review of systems, Historian denies cellulitis, denies rash, denies skin changes, denies skin lesions. (10:10 LLDO) NEUROLOGIC: Negative neurologic review of systems, Historian denies confusion, denies dizziness, denies focal weakness, denies mental status changes. (10:10 LLDO) HEMO/LYMPHATIC: Normal hematologic/lymphatic system review, Historian denies abnormal blood clotting, denies gum bleeding, denies petechiae. (10:10 LLDO) ALLERGIC/IMMUNOLOGIC: Normal allergy/immunologic system review, Historian denies eczema, denies environmental allergies, denies food allergies. (10:10 LLDO) PSYCHIATRIC: Negative psychiatric review of systems, Historian &a-1R&a+25V*p+0X*[id number]*c202B*c15G*c2P*p-0X&a-25V&a+1R Name: Tania Saldivar : 1960 F56 MedRec: [id number] AcctNum: [id number] Prepared: TueDec 03, 2016 02:06 by Interface Page 1 of 4 pMD [facility] EMERGENCY RECORD denies alcohol abuse, denies anxiety, denies depression, denies drug abuse, denies hallucinations. (10:10 LLDO) NOTES: All systems reviewed, negative except as described above. (10:04 LLDO) PAST MEDICAL HISTORY MEDICAL HISTORY: hyperlipidemia, high cholesterolHTN, CAD, diabetes, includes history of obesity. CONSTIPATION,. (09:57 BPHI) FEMALE SURGICAL HISTORY: veins stripping, vericous veins, cleft palate, DNC ABOUT 13 YEARS AGO SHE HAS NOT HAD A PERIOD SINCE. (09:57 BPHI) PSYCHIATRIC HISTORY: Notes: nervous breakdown . (09:57 BPHI) SOCIAL HISTORY: Patient denies alcohol use, Patient denies drug use, Patient has no smoking history, Lives at home, with family. (09:57 BPHI) NOTES: Nursing records reviewed, Agree with nursing records, Medication list reviewed. (10:09 LLDO) KNOWN ALLERGIES Penicillins: Reaction: Hives, Severity: Moderate, Source: Patient CURRENT MEDICATIONS (09:59 BPHI) atorvastatin: TABLET : Strength - 40 mg : ORAL Patient Dose: 40 mg Oral once a day (at bedtime). carvedilol: TABLET : Strength - 25 mg : ORAL Patient Dose: 1 tab(s) Oral 2 times a day. hydrochlorothiazide: TABLET : Strength - 25 mg : ORAL Patient Dose: 1 tab(s) Oral once a day. cloNIDine HCl: TABLET : Strength - 0.1 mg : ORAL Patient Dose: 1 tab(s) Oral 2 times a day.AND NEEDED FOR HIGH BP. hydrALAZINE: TABLET : Strength - 50 mg : ORAL Patient Dose: 50 mg Oral 3 times a day. lactulose: SOLUTION, ORAL : Strength - 10 gram/15 mL (15 mL) : ORAL Patient Dose: 2 times a day. NEEDED. metFORMIN: TABLET : Strength - 500 mg : ORAL Patient Dose: 1 tab(s) Oral 2 times a day. omeprazole: CAPSULE,DELAYED RELEASE (ENTERIC COATED) : Strength - 40 mg : ORAL Patient Dose: 1 cap(s) Oral once a day. naproxen: &a-1R&a+25V*p+0X*r9535G*c202B*c15G*c2P*p-0X&a-25V&a+1R Name: Tania Saldivar : 1960 F56 MedRec: [id number] AcctNum: [id number] Prepared: TueDec 03, 2016 02:06 by Interface Page 2 of 4 pMD [facility] EMERGENCY RECORD TABLET : Strength - 500 mg : ORAL Patient Dose: 1 tab(s) Oral once a day. Victoza 2-Paulo: PEN INJECTOR (ML) : Strength - 0.6 mg/0.1 mL (18 mg/3 mL) : [3 mL(s)] : SUBCUTANEOUS Patient Dose: 1.2 units Subcutaneous once a day (at bedtime). VITAL SIGNS VITAL SIGNS: BP: 136/99 (Right Arm), Pulse: 108 (Regular), Resp: 18 (Non-Labored), Temp: 97.8 (Tympanic), Pain: 7, O2 sat: 96 on Room Air, Time: 12/02/2016 09:49. (09:49 BPHI) BP: 145/97, Pulse: 100, Resp: 20, Pain: 4, O2 sat: 96 on RA, Time: 12/02/2016 11:20. (11:20 BPHI) Pain: 4, Time: 12/02/2016 10:35. (10:35 BPHI) PHYSICAL EXAM CONSTITUTIONAL: Vital signs reviewed, Patient afebrile, Pulse, tachycardic, 108, Blood pressure, BP ELEVATED, Respiratory rate normal, Patient appears, uncomfortable, Patient appears in pain, in moderate pain distress, Patient alert and oriented to person, place and time. (10:05 LLDO) HEAD: Head exam normal, Head exam included findings of head atraumatic, normocephalic. (10:10 LLDO) EYES: Eye exam normal, Eye exam included findings of eyelids normal to inspection, Pupils equally round and reactive to light, Extraocular muscles intact. (10:10 LLDO) ENT: ENT exam normal, Ear exam normal, Nose exam normal. (10:10 LLDO) NECK: Neck exam included findings of, range of motion limited by pain, Trachea midline, Thyroid normal, no meningeal signs, no cervical adenopathy, Tenderness, lateral, tender on right side of neck and into right trapezius and deltoid, 50% reduction in rom of head on neck. (10:05 LLDO) BACK: Back exam normal, Back exam included findings of normal inspection, range of motion normal. (10:10 LLDO) UPPER EXTREMITY: Upper extremity exam included findings of inspection normal, Range of motion, limited to the right shoulder, Motor strength normal, Sensation intact, Brachial pulse normal, Radial pulse normal, SEE HPI. (10:05 LLDO) LOWER EXTREMITY: Lower extremity exam normal, Lower extremity exam included findings of inspection normal, Range of motion normal. (10:10 LLDO) NEURO: Neuro exam normal, Neuro exam findings include patient oriented to person, place and time, Speech normal, [place] coma scale 15. (10:10 LLDO) SKIN: Skin exam normal, Skin exam included findings of skin warm, &a-1R&a+25V*p+0X*m2814O*c202B*c15G*c2P*p-0X&a-25V&a+1R Name: Tania Saldivar : 1960 F56 MedRec: [id number] AcctNum: [id number] Prepared: TueDec 03, 2016 02:06 by Interface Page 3 of 4 pMD [facility] EMERGENCY RECORD dry, and normal in color, no rash. (10:10 LLDO) PSYCHIATRIC: Psychiatric exam normal, Psychiatric exam included findings of patient oriented to person place and time, Normal affect. (10:10 LLDO) RADIOLOGYINTERPRETATION (11:12 LLDO) LOADING MANAGER: Preliminary review of x-rays by, Radiologist, radiologist requested CT of neck. 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 MEDICATION ADMINISTRATION SUMMARY Drug Name: Valium oral, Dose Ordered: 5 mg, Route: Oral, Status: Given, Time: 10:05 12/02/2016, Drug Name: *acetaminophen-codeine, Dose Ordered: 2 tab(s), Route: Oral, Status: Given, Time: 10:05 12/02/2016, *Additional information available in notes, Detailed record available in Medication Service section. PROBLEM LIST No recorded problems DIAGNOSIS (11:14 LLDO) FINAL: PRIMARY: neck contusion, ADDITIONAL: Shoulder contusion. PRESCRIPTION (11:15 LLDO) Flexeril: TABLET : 10 mg : ORAL : Quantity: 1 Unit: tab(s) Route: ORAL Schedule: every 8 hours PRN Dispense: 30 Unit: tab(s) May substitute. Refills: 1 . naproxen: TABLET : 500 mg : ORAL : Quantity: 1 Unit: tab(s) Route: ORAL Schedule: once a day (at bedtime) Dispense: 30 Unit: tab(s) May substitute. Refills: 1 . Tylenol-Codeine #3: TABLET : 300 mg-30 mg : ORAL : Quantity: 1-2 Unit: tab(s) Route: ORAL Schedule: every 4 hours prn Dispense: 24 Unit: tab(s) May substitute. Refills: No Refills . DISPOSITION PATIENT: Disposition Type: Discharge, Disposition: *Discharge Home. (11:14 LLDO) Patient left the department. (11:23 BPHI) Bansal: BPHI=ERIN Rodriguez, Юлия LLDO=MD Pamela, Alex &a-1R&a+25V*p+0X*[id number]*c202B*c15G*c2P*p-0X&a-25V&a+1R Name: Tania Saldivar Kika : 1960 F56 MedRec: [id number] AcctNum: [id number] Prepared: TueDec 03, 2016 02:06 by Interface Page 4 of 4 pMD MTDD
--- NOTE | 2016-12-02 11:38 | PICIS ---
[facility] EMERGENCY RECORD TRIAGE (09:50 BPHI) TRIAGE NOTES: RIGHT SHOULDER PAIN S/P A BOX FALLING ON HER SHOULDER ON TUESDAY AT [facility]. (09:50 BPHI) PATIENT: NAME: Tania Saldivar, AGE: 56, GENDER: female, : Tue1960, TIME OF GREET: TueDec 02, 2016 09:36, PREFERRED LANGUAGE: Telugu, ETHNICITY: Not or , FALL RISK: NO, ECODE BILLING MAP: [facility], SSN: [id number], Zip Code: [address], KG WEIGHT: [phone], PHONE: , , , PERSON ID: [id number], PCP: MD Goldman Katherine. (09:50 BPHI) COMPLAINT: BOX FELL ON HEAD/SHOULDER. (09:50 BPHI) ADMISSION: URGENCY: 4 Non Urgent, ADMISSION SOURCE: Home, TRANSPORT: CAR, BED: ED -04. (09:50 BPHI) ASSESSMENT: Assessment: PT REPORTS SHE WAS [facility]PING [facility] WHEN A BOX FELL ON HER RIGHT SHOULDER. HAS BEEN EXPERIENCING PAIN IN RIGHT SHOULER, C/O PAIN WHEN TURNING HER NECK., Symptoms began TUESDAY. (09:57 BPHI) PAIN: Patient complains of pain described as, on a scale 0-10 patient rates pain as 7, Location RIGHT SHOULDER AND NECK, Pain is constant. (09:57 BPHI) SIRS SCORING: Heart Rate 55-109 (0), Temp range 96.8-101.1 (0), respiratory rate 12-24 (0). (09:57 BPHI) TRIAGE SCREENING: Patient denies suicidal ideation, Patient denies presence of domestic violence. (09:57 BPHI) LMP: LMP: Not Applicable. (09:57 BPHI) PROVIDERS: TRIAGE NURSE: Юлия Rodriguez RN. (09:50 BPHI) VITAL SIGNS: BP 136/99, (Right Arm), Pulse 108, (Regular), Resp 18, (Non-Labored), Temp 97.8, (Tympanic), Pain 7, O2 Sat 96, on Room Air, Time 12/02/2016 09:49. (09:49 BPHI) PREVIOUS VISIT ALLERGIES: Penicillins. (09:50 BPHI) Penicillins. (09:57 BPHI) KNOWN ALLERGIES Penicillins: Reaction: Hives, Severity: Moderate, Source: Patient CURRENT MEDICATIONS (09:59 BPHI) atorvastatin: TABLET : Strength - 40 mg : ORAL Patient Dose: 40 mg Oral once a day (at bedtime). carvedilol: TABLET : Strength - 25 mg : ORAL Patient Dose: 1 tab(s) Oral 2 times a day. hydrochlorothiazide: TABLET : Strength - 25 mg : ORAL Patient Dose: 1 tab(s) Oral once a day. cloNIDine HCl: TABLET : Strength - 0.1 mg : ORAL Patient Dose: 1 tab(s) Oral 2 times a day.AND NEEDED FOR HIGH BP. hydrALAZINE: &a-1R&a+25V*p+0X*c7453C*c202B*c15G*c2P*p-0X&a-25V&a+1R Name: Tania Saldivar Kika : 1960 F56 MedRec: [id number] AcctNum: [id number] Prepared: TueDec 03, 2016 02:06 by Interface Page 1 of 8 pMD [facility] EMERGENCY RECORD TABLET : Strength - 50 mg : ORAL Patient Dose: 50 mg Oral 3 times a day. lactulose: SOLUTION, ORAL : Strength - 10 gram/15 mL (15 mL) : ORAL Patient Dose: 2 times a day. NEEDED. metFORMIN: TABLET : Strength - 500 mg : ORAL Patient Dose: 1 tab(s) Oral 2 times a day. omeprazole: CAPSULE,DELAYED RELEASE (ENTERIC COATED) : Strength - 40 mg : ORAL Patient Dose: 1 cap(s) Oral once a day. naproxen: TABLET : Strength - 500 mg : ORAL Patient Dose: 1 tab(s) Oral once a day. Victoza 2-Paulo: PEN INJECTOR (ML) : Strength - 0.6 mg/0.1 mL (18 mg/3 mL) : [3 mL(s)] : SUBCUTANEOUS Patient Dose: 1.2 units Subcutaneous once a day (at bedtime). VITAL SIGNS VITAL SIGNS: BP: 136/99 (Right Arm), Pulse: 108 (Regular), Resp: 18 (Non-Labored), Temp: 97.8 (Tympanic), Pain: 7, O2 sat: 96 on Room Air, Time: 12/02/2016 09:49. (09:49 BPHI) BP: 145/97, Pulse: 100, Resp: 20, Pain: 4, O2 sat: 96 on RA, Time: 12/02/2016 11:20. (11:20 BPHI) Pain: 4, Time: 12/02/2016 10:35. (10:35 BPHI) NURSING ASSESSMENT: BACK TRAUMA (09:50 BPHI) CONSTITUTIONAL: Patient arrives ambulatory, Gait steady, History obtained from patient, Patient appears, uncomfortable, Patient cooperative, Patient alert, Oriented to person, place and time, Skin warm, Skin dry, Skin normal in color, Mucous membranes pink, Mucous membranes moist, Patient is well-groomed, Patient complains of SHOULDER/NECK PAIN, PT REPORTS SHE WAS SHOPPING AT THE [employer] [facility]ORE WHEN A BOX FELL ON HER RIGHT SHOULDER. HAS BEEN EXPERIENCING PAIN IN RIGHT SHOULER, C/O PAIN WHEN TURNING HER NECK. HAS BEEN TAKING NAPROXEN AND USING A HEATING PAD BUT IT STILL HURTS. MECHANISM OF INJURY: Mechanism of injury blunt trauma by, fallen object, Notes: A BOX PT ESTIMATES WEIGHED ABOUT 10LBS FELL ON HER RIGHT SHOULDER ON TUESDAY. PAIN: deep pain, RIGHT SHOULDER BLADE, NECK RIGHT UPPER BACK, Onset of pain TUESDAY, constant, on a scale 0-10 patient rates pain as 6, Pain exacerbated by, TURNING HEAD,. NONVERBAL PAIN: Non-Verbal complaints present with movement (1), Facial grimaces present with movement (1), Rubbing present at rest (1), Rubbing present with &a-1R&a+25V*p+0X*f3324W*c202B*c15G*c2P*p-0X&a-25V&a+1R Name: Tania Saldivar : 1960 F56 MedRec: [id number] AcctNum: [id number] Prepared: TueDec 03, 2016 02:06 by Interface Page 2 of 8 pMD [facility] EMERGENCY RECORD movement (1), Result: 4. BACK: Back assessment findings include tenderness to. BACK TRAUMA: Notes: TENDERNESS TO RIGHT SHOULDER BLADE/UPPER BACK. NECK: Tenderness, Pain with range of motion, with rotation to the left, with rotation to the right. NECK TRAUMA: Neck trauma assessment findings include trachea midline, Notes: PAIN WITH TURNING HEAD RIGHT OR LEFT. SAFETY: Side rails up, Cart/Stretcher in lowest position, Family at bedside, Hospital ID band on. NURSING PROCEDURE: DISCHARGE NOTE (11:20 BPHI) DISCHARGE: Patient discharged to home, ambulating without assistance, family driving, accompanied by //partner, Summary of Care printed/ provided, Patient requested and was provided an electronic copy of Discharge Instructions, Discharge instructions given to patient, Prescriptions given and instructions on side effects given, Name of prescription(s) given: FLEXERIL, NAPROXEN, TYLENOL WITH CODEINE, Above person(s) verbalized understanding of discharge instructions and follow-up care, Patient treated and evaluated by physician. BELONGINGS: Belongings remain with patient, Valuables remain with patient. NOTES: Notes: PT LEFT ER WITH EVEN AND STEADY GAIT, NAD. ENCOURAGED TO FILL AND TAKE PRESCRIBED MEDICATIONS DIRECTED, F/U WITH PCP AND RETURN TO THE ER FOR ANY NEW AND/OR WORSENING SYMPTOMS. VITAL SIGNS: BP: 145, / 97, Pulse: 100, Resp: 20, Pain: 4, O2 sat: 96, on: RA. NURSING PROCEDURE: TRANSPORT TO TESTS PATIENT IDENTIFIER: Patient actively involved in identification process, Patient's identity verified by patient stating name, Patient's identity verified by hospital ID bracelet. (10:00 BPHI) Patient actively involved in identification process, Patient's identity verified by patient stating name, Patient's identity verified by hospital ID bracelet. (10:29 BPHI) TRANSPORT TO TESTS: Transport indicated to facilitate diagnosis, Patient transported to x-ray, ambulatory, Accompanied by x-ray corrections identification technician. (10:00 BPHI) Transport indicated to facilitate diagnosis, Patient transported to CT scan, ambulatory, Accompanied by x-ray corrections identification technician. (10:29 BPHI) FOLLOW-UP: After procedure, patient returned to emergency department. (10:15 BPHI) After procedure, patient returned to emergency department. (10:41 BPHI) ORDER DETAILS Order Name: CT Cervical Spine WO Con, Status: Canceled, Time: 10:49 &a-1R&a+25V*p+0X*x3815X*c202B*c15G*c2P*p-0X&a-25V&a+1R Name: Tania Saldivar : 1960 F56 MedRec: [id number] AcctNum: [id number] Prepared: TueDec 03, 2016 02:06 by Interface Page 3 of 8 pMD [facility] EMERGENCY RECORD 12/02/2016, User: System, - Ordered for: MD Santiago Lloyd, - Entered by: MD Santiago Lloyd - Patricia Dec 02, 2016 10:32, - Quantity: 1, Order Name: CT Cervical Spine WO Con, Status: Done, Time: 12:04 12/02/2016, User: System, - Ordered for: MD Santiago Lloyd, - Entered by: MD Santiago Lloyd - Patricia Dec 02, 2016 10:35, - Quantity: 1, Order Name: XR Cerv Sp Ap & Lat STANDARD, Status: Active, Time: 09:57 12/02/2016, User: ARIANA, - Ordered for: MD Santiago Lloyd, - Entered by: MD Santiago Lloyd - [facility] Dec 02, 2016 09:57, - Quantity: 1, Order Name: XR Shoulder Rt 3 View STANDARD, Status: Active, Time: 09:57 12/02/2016, User: ARIANA, - Ordered for: MD Santiago Lloyd, - Entered by: MD Santiago Lloyd - Patricia Dec 02, 2016 09:57, - Quantity: 1. MEDICATION ADMINISTRATION SUMMARY Drug Name: Valium oral, Dose Ordered: 5 mg, Route: Oral, Status: Given, Time: 10:05 12/02/2016, Drug Name: *acetaminophen-codeine, Dose Ordered: 2 tab(s), Route: Oral, Status: Given, Time: 10:05 12/02/2016, *Additional information available in notes, Detailed record available in Medication Service section. MEDICATION SERVICE acetaminophen-codeine: Order: acetaminophen-codeine (acetaminophen/codeine phosphate) - Dose: 2 tab(s) : Oral Schedule: Now Notes: each tab 30-300 Ordered by: Alex Santiago MD Entered by: Alex Santiago MD [facility] Dec 02, 2016 09:58 , Acknowledged by: Юлия Rodriguez RN [facility] Dec 02, 2016 09:59 Documented as given by: Юлия Rodriguez RN [facility] Dec 02, 2016 10:05 Patient, Medication, Dose, Route and Time verified prior to administration. Amount given: 2TABS, Site: Medication administered P.O., Correct patient, time, route, dose and medication confirmed prior to administration, Patient advised of actions and side-effects prior to administration, Allergies confirmed and medications reviewed prior to administration, Patient in position of comfort, Cart in lowest position. acetaminophen-codeine: No signs or symptoms of allergic reaction noted, Decreased pain, Pain: 4. (10:35 BPHI) Valium oral: Order: Valium oral (diazepam) - Dose: 5 mg : Oral &a-1R&a+25V*p+0X*l7574D*c202B*c15G*c2P*p-0X&a-25V&a+1R Name: Tania Saldivar : 1960 F56 MedRec: [id number] AcctNum: [id number] Prepared: TueDec 03, 2016 02:06 by Interface Page 4 of 8 [facility] EMERGENCY RECORD Schedule: Now Ordered by: Alex Santiago MD Entered by: Alex Santiago MD [facility] Dec 02, 2016 09:58 , Acknowledged by: Юлия Rodriguez RN [facility] Dec 02, 2016 09:59 Documented as given by: Юлия Rodriguez RN [facility] Dec 02, 2016 10:05 Patient, Medication, Dose, Route and Time verified prior to administration. Amount given: 5MG, Site: Medication administered P.O., Correct patient, time, route, dose and medication confirmed prior to administration, Patient advised of actions and side-effects prior to administration, Allergies confirmed and medications reviewed prior to administration, Patient in position of comfort, Cart in lowest position. HPI TRAUMA (09:59 LLDO) CHIEF COMPLAINT: Patient presents for evaluation of trauma, Patient presents for evaluation of decreased range of motion, Patient presents for evaluation of decreased use, Patient presents for evaluation of injury, Patient presents for evaluation of pain, Patient presents for evaluation of see triage note. box of hardware fell on her right neck and shoulder 5 days ago and pt is still having pain and reduced rom of neck and shoulder since. very hard to sleep at night. HISTORIAN: History provided by patient, History provided by patient's spouse. MECHANISM OF INJURY: Mechanism of injury: Blunt trauma. LOCATION: Symptoms are localized. QUALITY: Pain is dull in nature, described as aching. SEVERITY: Maximum severity of symptoms moderate, Currently symptoms are moderate. TIME COURSE: Sudden onset of symptoms, There has been no change in the patient's symptoms over time, are constant. ASSOCIATED WITH: Associated with neck pain, Associated with shoulder pain, on the right, Associated with contusion(s), No associated symptoms. EXACERBATED BY: Patient's condition exacerbated by ANY MOVEMENT OR PALPATION. RELIEVED BY: Patient's condition relieved by rest. RISK FACTORS: No risk factors for spinal injury, No risk factors for intracranial bleed. ROS CONSTITUTIONAL: Negative constitutional review of systems. (10:04 LLDO) EYES: Negative eye review of systems, Historian denies eye pain, denies eye redness, denies eye discharge. (10:10 LLDO) ENT: Negative ears, nose, throat review of systems, Historian denies epistaxis, denies rhinorrhea, denies sinus pain, denies sore throat. (10:10 LLDO) MUSCULOSKELETAL: Historian reports arthralgias, reports injury, reports myalgias, reports &a-1R&a+25V*p+0X*y3049Z*c202B*c15G*c2P*p-0X&a-25V&a+1R Name: Tania Saldivar : 1960 F56 MedRec: [id number] AcctNum: [id number] Prepared: TueDec 03, 2016 02:06 by Interface Page 5 of 8 pMD [facility] EMERGENCY RECORD neck pain. ONLY IN HPI. (10:04 LLDO) SKIN: Negative skin review of systems, Historian denies cellulitis, denies rash, denies skin changes, denies skin lesions. (10:10 LLDO) NEUROLOGIC: Negative neurologic review of systems, Historian denies confusion, denies dizziness, denies focal weakness, denies mental status changes. (10:10 LLDO) HEMO/LYMPHATIC: Normal hematologic/lymphatic system review, Historian denies abnormal blood clotting, denies gum bleeding, denies petechiae. (10:10 LLDO) ALLERGIC/IMMUNOLOGIC: Normal allergy/immunologic system review, Historian denies eczema, denies environmental allergies, denies food allergies. (10:10 LLDO) PSYCHIATRIC: Negative psychiatric review of systems, Historian denies alcohol abuse, denies anxiety, denies depression, denies drug abuse, denies hallucinations. (10:10 LLDO) NOTES: All systems reviewed, negative except as described above. (10:04 LLDO) PAST MEDICAL HISTORY MEDICAL HISTORY: hyperlipidemia, high cholesterolHTN, CAD, diabetes, includes history of obesity. CONSTIPATION,. (09:57 BPHI) FEMALE SURGICAL HISTORY: veins stripping, vericous veins, cleft palate, DNC ABOUT 13 YEARS AGO SHE HAS NOT HAD A PERIOD SINCE. (09:57 BPHI) PSYCHIATRIC HISTORY: Notes: nervous breakdown . (09:57 BPHI) SOCIAL HISTORY: Patient denies alcohol use, Patient denies drug use, Patient has no smoking history, Lives at home, with family. (09:57 BPHI) NOTES: Nursing records reviewed, Agree with nursing records, Medication list reviewed. (10:09 LLDO) PHYSICAL EXAM CONSTITUTIONAL: Vital signs reviewed, Patient afebrile, Pulse, tachycardic, 108, Blood pressure, BP ELEVATED, Respiratory rate normal, Patient appears, uncomfortable, Patient appears in pain, in moderate pain distress, Patient alert and oriented to person, place and time. (10:05 LLDO) HEAD: Head exam normal, Head exam included findings of head atraumatic, normocephalic. (10:10 LLDO) EYES: Eye exam normal, Eye exam included findings of eyelids normal to inspection, Pupils equally round and reactive to light, Extraocular muscles intact. (10:10 LLDO) ENT: ENT exam normal, Ear exam normal, Nose exam normal. (10:10 LLDO) NECK: Neck exam included findings of, range of motion limited by pain, Trachea midline, Thyroid normal, no meningeal &a-1R&a+25V*p+0X*y1338T*c202B*c15G*c2P*p-0X&a-25V&a+1R Name: Tania Saldivar : 1960 F56 MedRec: [id number] AcctNum: [id number] Prepared: TueDec 03, 2016 02:06 by Interface Page 6 of 8 pMD [facility] EMERGENCY RECORD signs, no cervical adenopathy, Tenderness, lateral, tender on right side of neck and into right trapezius and deltoid, 50% reduction in rom of head on neck. (10:05 LLDO) BACK: Back exam normal, Back exam included findings of normal inspection, range of motion normal. (10:10 LLDO) UPPER EXTREMITY: Upper extremity exam included findings of inspection normal, Range of motion, limited to the right shoulder, Motor strength normal, Sensation intact, Brachial pulse normal, Radial pulse normal, SEE HPI. (10:05 LLDO) LOWER EXTREMITY: Lower extremity exam normal, Lower extremity exam included findings of inspection normal, Range of motion normal. (10:10 LLDO) NEURO: Neuro exam normal, Neuro exam findings include patient oriented to person, place and time, Speech normal, [place] coma scale 15. (10:10 LLDO) SKIN: Skin exam normal, Skin exam included findings of skin warm, dry, and normal in color, no rash. (10:10 LLDO) PSYCHIATRIC: Psychiatric exam normal, Psychiatric exam included findings of patient oriented to person place and time, Normal affect. (10:10 LLDO) EVENTS TRANSFER: Triage to Emergency Main ED -04. (Patricia Dec 02, 2016 09:50 BPHI) Removed from Emergency Main ED -04. (11:23 BPHI) RADIOLOGYINTERPRETATION (11:12 LLDO) CAMPGROUND ATTENDANT: Preliminary review of x-rays by, Radiologist, radiologist requested CT of neck. 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 PROBLEM LIST No recorded problems DIAGNOSIS (11:14 LLDO) FINAL: PRIMARY: neck contusion, ADDITIONAL: Shoulder contusion. DISPOSITION PATIENT: Disposition Type: Discharge, Disposition: *Discharge Home. (11:14 LLDO) Patient left the department. (11:23 BPHI) INSTRUCTION (11:17 LLDO) DISCHARGE: SHOULDER CONTUSION, CERVICAL SPRAINSTRAIN. FOLLOWUP: MD Susi, Lisa, [facility], [address], [address], [facility] [address], , Follow up with Primary Care Physician in 7-10 days. &a-1R&a+25V*p+0X*w7305E*c202B*c15G*c2P*p-0X&a-25V&a+1R Name: Tania Saldivar : 1960 F56 MedRec: [id number] AcctNum: [id number] Prepared: TueDec 03, 2016 02:06 by Interface Page 7 of 8 pMD [facility] EMERGENCY RECORD SPECIAL: Follow-up with your PCP. PRESCRIPTION (11:15 LLDO) Flexeril: TABLET : 10 mg : ORAL : Quantity: 1 Unit: tab(s) Route: ORAL Schedule: every 8 hours PRN Dispense: 30 Unit: tab(s) May substitute. Refills: 1 . naproxen: TABLET : 500 mg : ORAL : Quantity: 1 Unit: tab(s) Route: ORAL Schedule: once a day (at bedtime) Dispense: 30 Unit: tab(s) May substitute. Refills: 1 . Tylenol-Codeine #3: TABLET : 300 mg-30 mg : ORAL : Quantity: 1-2 Unit: tab(s) Route: ORAL Schedule: every 4 hours prn Dispense: 24 Unit: tab(s) May substitute. Refills: No Refills . IMAGING (11:28 BPHI) *DISCHARGE INSTRUCTIONS RECEIPT: Image captured from scanner. Page 2 added. Image captured from scanner. *SUPPLY CHARGE SHEET: Image captured from scanner. ADMIN DIGITAL SIGNATURE: ERIN Rodriguez Brittany. (11:29 BPHI) MD Santiago Lloyd. (TueDec 03, 2016 02:02 LLDO) [place]: BPHI=ERIN Rodriguez Brittany LLDO=MD Santiago Lloyd &a-1R&a+25V*p+0X*d3723R*c202B*c15G*c2P*p-0X&a-25V&a+1R Name: Tania Saldivar : 1960 F56 MedRec: [id number] AcctNum: [id number] Prepared: TueDec 03, 2016 02:06 by Interface Page 8 of 8 pMD [facility] MEDICATION RECONCILIATION You were seen in the Emergency Department on: TueDec 02, 2016 KNOWN ALLERGIES Penicillins: Reaction: Hives, Severity: Moderate, Source: Patient MEDICATIONS GIVEN WHILE IN THE EMERGENCY DEPARTMENT acetaminophen-codeine (acetaminophen/codeine phosphate) - Dose: 2 tab(s) : Oral Valium oral (diazepam) - Dose: 5 milligram(s) : Oral HOME MEDICATIONS CONTINUE PRESCRIBED atorvastatin : TABLET : Strength - 40 mg : ORAL Continue as prescribed Patient had been takin mg Oral once a day (at bedtime). carvedilol : TABLET : Strength - 25 mg : ORAL Continue as prescribed Patient had been takin tab(s) Oral 2 times a day. cloNIDine HCl : TABLET : Strength - 0.1 mg : ORAL Continue as prescribed Patient had been takin tab(s) Oral 2 times a day. Comment: AND NEEDED FOR HIGH BP. hydrALAZINE : TABLET : Strength - 50 mg : ORAL Continue as prescribed Patient had been takin mg Oral 3 times a day. hydrochlorothiazide : TABLET : Strength - 25 mg : ORAL Continue as prescribed Patient had been takin tab(s) Oral once a day. lactulose : SOLUTION, ORAL : Strength - 10 gram/15 mL (15 mL) : ORAL Continue as prescribed Patient had been takin times a day. Comment: NEEDED. metFORMIN : TABLET : Strength - 500 mg : ORAL Continue as prescribed Patient had been takin tab(s) Oral 2 times a day. &a-1R&a+25V*p+0X*l1895X*c202B*c15G*c2P*p-0X&a-25V&a+1R Name: Hiren Saldivarfrancia Anand : 1960 F56 MedRec: [id number] AcctNum: [id number] Prepared: TueDec 03, 2016 02:06 by Interface pMD [facility] MEDICATION RECONCILIATION naproxen : TABLET : Strength - 500 mg : ORAL Continue as prescribed Patient had been takin tab(s) Oral once a day. omeprazole : CAPSULE,DELAYED RELEASE (ENTERIC COATED) : Strength - 40 mg : ORAL Continue as prescribed Patient had been takin cap(s) Oral once a day. Victoza 2-Paulo : PEN INJECTOR (ML) : Strength - 0.6 mg/0.1 mL (18 mg/3 mL) : [3 mL(s)] : SUBCUTANEOUS Continue as prescribed Patient had been takin.2 units Subcutaneous once a day (at bedtime). Notes from the emergency department Reviewed with family Reviewed with patient PRESCRIPTIONS (3) Printed (3) Flexeril : TABLET : 10 mg : ORAL Quantity: 1, Unit: tab(s), Route: ORAL, Schedule: every 8 hours PRN, Dispense: 30 Unit: tab(s) naproxen : TABLET : 500 mg : ORAL Quantity: 1, Unit: tab(s), Route: ORAL, Schedule: once a day (at bedtime), Dispense: 30 Unit: tab(s) &a-1R&a+25V*p+0X*o9451Q*c202B*c15G*c2P*p-0X&a-25V&a+1R Name: Tania Saldivar : 1960 F56 MedRec: [id number] AcctNum: [id number] Prepared: TueDec 03, 2016 02:06 by Interface Lou LERMA
== END 2016-12-02 11:20 | disposition home or self-care (01) ==
LOC: MADERS 09:35
DX: S10.93XA Contusion of unspecified part of neck, initial encounter (principal); S40.011A Contusion of right shoulder, initial encounter; E78.5 Hyperlipidemia, unspecified; E11.9 Type 2 diabetes mellitus without complications; I10 Essential (primary) hypertension; Z79.84 Long term (current) use of oral hypoglycemic drugs; Z79.899 Other long term (current) drug therapy; W20.8XXA Other cause of strike by thrown, projected or falling object, initial encounter
CPT/HCPCS: 72040; 72125

== ENCOUNTER 2016-12-04 13:32 | Emergency (ER) | payer MEDICARE ==
[2016-12-04] MEDS ORDERED: Ketorolac Tromethamine 60 MG/2 ML VIAL ONE (14:52)
--- NOTE | 2016-12-04 15:36 | ERRECORD ---
[facility] EMERGENCY RECORD HPI NECK PAIN (16:23 LHOD) CHIEF COMPLAINT: Patient presents for evaluation of neck injury, Patient presents for evaluation of neck pain. HISTORIAN: History provided by patient. TIME COURSE: PT REPORTS SHE WAS IN [employer] WHEN A BOX FELL STRIKING THE RIGHT SIDE OF HER HEAD / NECK. SHE REPORTS OVER THE NEXT FEW DAYS SHE DEVELOPED INCREASING PAIN. SHE REPORTS SHE HAD A CT OF HER NECK THIS PAST TUESDAY. IT REVEALED SIGNIFICANT SPINAL STENOSIS W/O ACUTE FRACTURE. PT REPORTS SHE CONTINUES TO HAVE SEVERE RIGHT NECK / SHOULDER PAIN. REPORTS NAPROXEN AND FLEXERIL DO NOT DECREASE PAIN AT ALL. TYLENOL #3 WITH MINIMAL RELIEF. SHE REQUESTS A SLING OR SOMETHING TO TAKE WEIGHT OF HER RIGHT ARM FROM PULLING ON HER NECK. ASSOCIATED WITH: Associated with back pain, to the upper back, No associated focal deficit, No associated focal weakness, No associated headache, No associated nausea, No associated numbness, No associated open wounds, No Over 65 years old, No associated vomiting. EXACERBATED BY: Patient's condition exacerbated by movement of head. RELIEVED BY: Patient's condition relieved by nothing. ROS (16:39 LHOD) CONSTITUTIONAL: Historian denies fever. EYES: Negative eye review of systems. ENT: Negative ears, nose, throat review of systems. CARDIOVASCULAR: Historian denies chest pain. RESPIRATORY: Historian denies shortness of breath. GI: Historian denies abdominal pain, denies nausea, denies vomiting. MUSCULOSKELETAL: Historian reports back pain, reports neck pain, reports spasms. RIGHT SHOULDER PAINS. SKIN: Historian reports rash, ROSACEA OF FACE. NEUROLOGIC: Historian denies focal weakness, denies headache. HEMO/LYMPHATIC: Historian denies easy bruising. NOTES: All systems reviewed, negative except as described above. PAST MEDICAL HISTORY MEDICAL HISTORY: Flu vaccine up to date, Date of immunization: 2014, Tetanus immunization up to date, hyperlipidemia, high cholesterolHTN, CAD, diabetes, includes history of obesity. CONSTIPATION,. (14:25 LWAL) FEMALE SURGICAL HISTORY: veins stripping, vericous veins, cleft palate, DNC ABOUT 13 YEARS AGO SHE HAS NOT HAD A PERIOD SINCE. (14:25 LWAL) PSYCHIATRIC HISTORY: Notes: nervous breakdown . (14:25 LWAL) SOCIAL HISTORY: Patient denies alcohol use, Patient denies drug use, Patient has no smoking history, Lives at home, with &a-1R&a+25V*p+0X*k0242I*c202B*c15G*c2P*p-0X&a-25V&a+1R Name: Tania Saldivar : 1960 F56 MedRec: [id number] AcctNum: [id number] Prepared: Miguelito Dec 04, 2016 17:01 by Interface Page 1 of 4 pMD [facility] EMERGENCY RECORD family. (14:25 LWAL) NOTES: Nursing records reviewed. (16:58 LHOD) KNOWN ALLERGIES Penicillins: Reaction: Hives, Severity: Moderate, Source: Patient CURRENT MEDICATIONS atorvastatin: TABLET : Strength - 40 mg : ORAL Patient Dose: 40 mg Oral once a day (at bedtime). (14:19 LWAL) carvedilol: TABLET : Strength - 25 mg : ORAL Patient Dose: 1 tab(s) Oral 2 times a day. (14:19 LWAL) hydrochlorothiazide: TABLET : Strength - 25 mg : ORAL Patient Dose: 1 tab(s) Oral once a day. (14:19 LWAL) cloNIDine HCl: TABLET : Strength - 0.1 mg : ORAL Patient Dose: 1 tab(s) Oral 2 times a day.AND NEEDED FOR HIGH BP. (14:19 LWAL) hydrALAZINE: TABLET : Strength - 50 mg : ORAL Patient Dose: 50 mg Oral 3 times a day. (14:19 LWAL) metFORMIN: TABLET : Strength - 500 mg : ORAL Patient Dose: 1 tab(s) Oral 2 times a day. (14:19 LWAL) omeprazole: CAPSULE,DELAYED RELEASE (ENTERIC COATED) : Strength - 40 mg : ORAL Patient Dose: 1 cap(s) Oral once a day. (14:19 LWAL) Victoza 2-Paulo: PEN INJECTOR (ML) : Strength - 0.6 mg/0.1 mL (18 mg/3 mL) : [3 mL(s)] : SUBCUTANEOUS Patient Dose: 1.2 units Subcutaneous once a day (at bedtime). (14:19 LWAL) Flexeril: TABLET : Strength - 10 mg : ORAL Patient Dose: 1 tab(s) Oral every 8 hours PRN. (14:19 LWAL) naproxen: TABLET : Strength - 500 mg : ORAL Patient Dose: 1 tab(s) Oral once a day (at bedtime). (14:19 LWAL) Tylenol-Codeine #3: TABLET : Strength - 300 mg-30 mg : ORAL Patient Dose: 1-2 tab(s) Oral every 4 hours prn. (14:19 LWAL) CRISPIN SNOWOSTAR: Patient Dose: 60 units Subcutaneous once a day (in the morning). (14:22 LWAL) &a-1R&a+25V*p+0X*t1704K*c202B*c15G*c2P*p-0X&a-25V&a+1R Name: Tania Saldivar : 1960 F56 MedRec: [id number] AcctNum: [id number] Prepared: Sat Dec 04, 2016 17:01 by Interface Page 2 of 4 pMD [facility] EMERGENCY RECORD VITAL SIGNS VITAL SIGNS: BP: 187/92 (Sitting), Pulse: 113, Resp: 22, Temp: 98.2 (Oral), Pain: 10 (Constant), O2 sat: 94 on Room Air, Time: 12/04/2016 14:15. (14:15 LWAL) Pain: 6, Time: 12/04/2016 15:20. (15:20 LWAL) PHYSICAL EXAM (16:56 LHOD) CONSTITUTIONAL: Vital Signs Reviewed, Patient afebrile, Pulse, tachycardic, Blood pressure, hypertensive, Respiratory rate, Normal pulse oximetry, Patient appears, in severe pain distress, Patient alert and oriented to person, place and time, MARKED DIFFUSE FACIAL ERYTHEMA. EYES: Pupils equally round and reactive to light, Extraocular muscles intact. NECK: Trachea midline, TENDER DIFFUSELY POSTERIOR NECK WITH RIGHT TRAPEZIUS MUSCLE TENDERNESS. PT HOLDS HEAD TILTED TO RIGHT. RESPIRATORY CHEST: Respiratory exam included findings of no respiratory distress, Breath sounds clear. CARDIOVASCULAR: Cardiovascular exam included findings of heart rate regular rate and rhythm. ABDOMEN FEMALE: Abdominal exam included findings of abdomen nontender. BACK: Tenderness, paraspinal to the right upper back. UPPER EXTREMITY: Upper extremity exam normal, RIGHT SHOULDER NORMAL ROM, BUT DISCOMFORT OF RIGHT SUPRACLAVICULAR / TRAPEZIUS MUSCLE. LOWER EXTREMITY: Lower extremity exam normal. NEURO: Neuro exam findings include patient oriented to person, place and time, Speech normal. SKIN: Rash present, FACIAL ERYTHEMA---PT REPORTS FROM [facility]. MEDICATION ADMINISTRATION SUMMARY Drug Name: Toradol intramuscular, Dose Ordered: 60 mg, Route: Intramuscular, Status: Given, Time: 15:04 12/04/2016, Detailed record available in Medication Service section. PROBLEM LIST No recorded problems DIAGNOSIS (14:49 LHOD) FINAL: PRIMARY: CERVICAL STRAIN WITH SPINAL STENOSIS, ADDITIONAL: RIGHT TRAPEZIUS MUSCLE SPASM. PRESCRIPTION Robaxin oral: TABLET : 750 mg : ORAL : Quantity: 1 Unit: &a-1R&a+25V*p+0X*o3368P*c202B*c15G*c2P*p-0X&a-25V&a+1R Name: Tania Saldivar : 1960 F56 MedRec: [id number] AcctNum: [id number] Prepared: Miguelito Dec 04, 2016 17:01 by Interface Page 3 of 4 pMD [facility] EMERGENCY RECORD tab(s) Route: ORAL Schedule: every 6 hours PRN Dispense: 16 May substitute. Refills: No Refills . (14:49 LHOD) NOTES: No Refills. (14:49 LHOD) Tylenol-Codeine #3: TABLET : 300 mg-30 mg : ORAL : Quantity: 1-2 Unit: tab(s) Route: ORAL Schedule: every 4 hours prn Dispense: 16 May substitute. Refills: No Refills . (14:49 LHOD) NOTES: ^s=No Refills No Refills. (14:49 LHOD) Voltaren-XR: TABLET, EXTENDED RELEASE 24 HR : 100 mg : ORAL : Quantity: 1 Unit: tab(s) Route: ORAL Schedule: once a day (in the morning) Dispense: 10 May substitute. Refills: No Refills POTENTIAL CONTRAINDICATED INTERACTION: Toradol intramuscular (ketorolac tromethamine) Override Rationale: Patient no longer on medication. (14:50 LHOD) NOTES: No Refills. (14:50 LHOD) DISPOSITION PATIENT: Disposition Type: Discharge, Disposition: *Discharge Home, Condition: Good. (14:49 LHOD) Disposition Transport: Car, Patient left the department. (15:28 LWAL) Bansal: LHOD=MD Juan Diego, Nancy LWAL=ERIN Forbes, Temi &a-1R&a+25V*p+0X*r1085D*c202B*c15G*c2P*p-0X&a-25V&a+1R Name: Tania Saldivar : 1960 F56 MedRec: [id number] AcctNum: [id number] Prepared: Miguelito Dec 04, 2016 17:01 by Interface Page 4 of 4 pMD MTDD
--- NOTE | 2016-12-04 15:41 | PICIS ---
[facility] EMERGENCY RECORD TRIAGE (14:18 LWAL) TRIAGE NOTES: R SHOULDER PAIN AND NECK PAIN SINCE 11-27-16. (14:18 LWAL) PATIENT: NAME: Tania Saldivar, AGE: 56, GENDER: female, : [facility] 1960, TIME OF GREET: Sat Dec 04, 2016 13:33, PREFERRED LANGUAGE: Singaporean, ETHNICITY: Not or , FALL RISK: NO, ECODE BILLING MAP: [facility], SSN: [id number], Zip Code: [address], KG WEIGHT: [phone], PHONE: , , , PERSON ID: [id number], PCP: MD Goldman Katherine. (14:18 LWAL) COMPLAINT: BACK & NECK PAIN. (14:18 LWAL) ADMISSION: URGENCY: 4 Non Urgent, ADMISSION SOURCE: Home, TRANSPORT: CAR, BED: WAIT. (14:18 LWAL) ASSESSMENT: Assessment: PAIN IN R SIDE OF NECK AND SHOULDER AND DOWN R ARM., Symptoms began 11-27-16. (14:25 LWAL) PAIN: Location R NECK, SHOULDER, AND ARM, Pain is constant. (14:25 LWAL) IMMUNIZATIONS: Flu vaccine up to date, Tetanus immunization up to date, Pneumococcal vaccine not up to date. (14:25 LWAL) SIRS SCORING: Heart Rate 55-109 (0), Temp range 96.8-101.1 (0), respiratory rate 12-24 (0), Mental Status altered: no (0), Infection or Suspected Infection: No. (14:25 LWAL) TRIAGE SCREENING: Patient denies suicidal ideation, Patient denies presence of domestic violence. (14:34 LWAL) TREATMENTS IN PROGRESS: Treatments given Prehospital: TYLENOL #3 1 TABLET AT 2 PM. (14:25 LWAL) PROVIDERS: TRIAGE NURSE: Temi Forbes RN. (14:18 LWAL) VITAL SIGNS: BP 187/92, (Sitting), Pulse 113, Resp 22, Temp 98.2, (Oral), Pain 10, (Constant), O2 Sat 94, on Room Air, Time 12/04/2016 14:15. (14:15 LWAL) PREVIOUS VISIT ALLERGIES: Penicillins. (14:18 LWAL) Penicillins. (14:25 LWAL) KNOWN ALLERGIES Penicillins: Reaction: Hives, Severity: Moderate, Source: Patient CURRENT MEDICATIONS atorvastatin: TABLET : Strength - 40 mg : ORAL Patient Dose: 40 mg Oral once a day (at bedtime). (14:19 LWAL) carvedilol: TABLET : Strength - 25 mg : ORAL Patient Dose: 1 tab(s) Oral 2 times a day. (14:19 LWAL) hydrochlorothiazide: TABLET : Strength - 25 mg : ORAL Patient Dose: 1 tab(s) Oral once a day. (14:19 LWAL) cloNIDine HCl: TABLET : Strength - 0.1 mg : ORAL Patient Dose: 1 tab(s) Oral 2 times a day.AND NEEDED FOR &a-1R&a+25V*p+0X*v6155T*c202B*c15G*c2P*p-0X&a-25V&a+1R Name: Yariel Tania Anand : 1960 F56 MedRec: [id number] AcctNum: [id number] Prepared: Miguelito Dec 04, 2016 17:07 by Interface Page 1 of 7 pMD [facility] EMERGENCY RECORD HIGH BP. (14:19 LWAL) hydrALAZINE: TABLET : Strength - 50 mg : ORAL Patient Dose: 50 mg Oral 3 times a day. (14:19 LWAL) metFORMIN: TABLET : Strength - 500 mg : ORAL Patient Dose: 1 tab(s) Oral 2 times a day. (14:19 LWAL) omeprazole: CAPSULE,DELAYED RELEASE (ENTERIC COATED) : Strength - 40 mg : ORAL Patient Dose: 1 cap(s) Oral once a day. (14:19 LWAL) Victoza 2-Paulo: PEN INJECTOR (ML) : Strength - 0.6 mg/0.1 mL (18 mg/3 mL) : [3 mL(s)] : SUBCUTANEOUS Patient Dose: 1.2 units Subcutaneous once a day (at bedtime). (14:19 LWAL) Flexeril: TABLET : Strength - 10 mg : ORAL Patient Dose: 1 tab(s) Oral every 8 hours PRN. (14:19 LWAL) naproxen: TABLET : Strength - 500 mg : ORAL Patient Dose: 1 tab(s) Oral once a day (at bedtime). (14:19 LWAL) Tylenol-Codeine #3: TABLET : Strength - 300 mg-30 mg : ORAL Patient Dose: 1-2 tab(s) Oral every 4 hours prn. (14:19 LWAL) CRISPIN EMMANUEL: Patient Dose: 60 units Subcutaneous once a day (in the morning). (14:22 LWAL) VITAL SIGNS VITAL SIGNS: BP: 187/92 (Sitting), Pulse: 113, Resp: 22, Temp: 98.2 (Oral), Pain: 10 (Constant), O2 sat: 94 on Room Air, Time: 12/04/2016 14:15. (14:15 LWAL) Pain: 6, Time: 12/04/2016 15:20. (15:20 LWAL) NURSING ASSESSMENT: EXTREMITY UPPER (14:34 LWAL) CONSTITUTIONAL: Patient arrives ambulatory, Gait steady, History obtained from patient, Patient appears, in distress due to pain, Patient cooperative, Patient alert, Oriented to person, place and time, Skin warm, Skin dry, Skin normal in color, Mucous membranes pink, Mucous membranes moist, Patient is well-groomed, Patient complains of R SHOULDER AND NECK PAIN, PT HAD A BOX FALL ONTO HER NECK AND SHOULDER 1 WEEK AGO. PT SEEN ON 12-02 FOR THE PAIN. PT WAS GIVEN PAIN MEDS AND FLEXERIL. PT APPLYING ICE AND HEAT ALTERNATING DIRECTED. NO HELP WITH THE PAIN TODAY. PAIN: cramping pain, tender pain, to the right shoulder, to the right upper arm, Onset of pain 1-21-17, on a scale 0-10 patient rates pain as 10, PT TOOK TYLENOL #3 1 TABLET AT 2PM. &a-1R&a+25V*p+0X*i4647V*c202B*c15G*c2P*p-0X&a-25V&a+1R Name: SaldivarHirenfrancia Anand : 1960 F56 MedRec: [id number] AcctNum: [id number] Prepared: Sat Dec 04, 2016 17:07 by Interface Page 2 of 7 pMD [facility] EMERGENCY RECORD LEFT UPPER EXTREMITY: Left upper extremity assessment findings include capillary refill less than 2 seconds, Skin color normal to hand, Skin temperature to hand warm, Distal sensation intact, Muscle tone normal, muscle strength 5, no edema present, radial pulse is +3, brachial pulse is +3. RIGHT UPPER EXTREMITY: Right upper extremity assessment findings include capillary refill less than 2 seconds, Skin color normal to hand, Skin temperature to hand warm, Distal sensation intact, Muscle tone normal, muscle strength 3, no edema present, radial pulse is +3, brachial pulse is +3. NOTES: Patient tolerated procedure well. SAFETY: Side rails up, Cart/Stretcher in lowest position, Family at bedside, Hospital ID band on. NURSING PROCEDURE: DISCHARGE NOTE (15:20 LWAL) DISCHARGE: Patient discharged to home, ambulating without assistance, family driving, accompanied by //partner, Summary of Care printed/ provided, Patient requested and was provided an electronic copy of Discharge Instructions, Transition record given to patient, Discharge instructions given to patient, Simple or moderate discharge teaching performed, by ROBBY KHAN, Prescriptions given and instructions on side effects given, Name of prescription(s) given: ROBAXIN, VOLTAREN, TYLENOL #3, Above person(s) verbalized understanding of discharge instructions and follow-up care, Patient treated and evaluated by physician. BELONGINGS: Belongings remain with patient, Valuables remain with patient. NOTES: Patient tolerated procedure well. SAFETY: Side rails up, Cart/Stretcher in lowest position, Family at bedside, Call light within reach, Hospital ID band on. VITAL SIGNS: Pain: 6. NURSING PROCEDURE: SPLINTING (15:05 LWAL) PATIENT IDENTIFIER: Patient actively involved in identification process, Patient's identity verified by patient stating name, Patient's identity verified by hospital ID bracelet. SPLINTING: Splinting indicated for strain care, Splint applied to, the right forearm, by ROBBY KHAN, sling applied, Immobilized in position of comfort, Injury to dominant hand, Patient right hand dominant, Last tetanus shot received less than 5 years ago. FOLLOW-UP: After procedure, capillary refill less than 2 seconds, After procedure, distal circulation intact, After procedure, distal motor function intact, After procedure, distal sensation intact, After procedure, distal pulses present. NOTES: Patient tolerated procedure well. SAFETY: Side rails up, Cart/Stretcher in lowest position, Family at bedside, Call light within reach, Hospital ID band on. ORDER DETAILS &a-1R&a+25V*p+0X*i3320I*c202B*c15G*c2P*p-0X&a-25V&a+1R Name: Tania Saldivar : 1960 F56 MedRec: [id number] AcctNum: [id number] Prepared: Sat Dec 04, 2016 17:07 by Interface Page 3 of 7 pMD [facility] EMERGENCY RECORD Order Name: SPLINT (PRE-AVANI), Status: Done, Time: 15:20 12/04/2016, User: LWERIK, - Ordered for: MD Adamson Lefayne, - Entered by: MD Adamson Lefayne - Sat Dec 04, 2016 14:47, - Quantity: 1. MEDICATION ADMINISTRATION SUMMARY Drug Name: Toradol intramuscular, Dose Ordered: 60 mg, Route: Intramuscular, Status: Given, Time: 15:04 12/04/2016, Detailed record available in Medication Service section. MEDICATION SERVICE (15:04 LHOD) Toradol intramuscular: Order: Toradol intramuscular (ketorolac tromethamine) - Dose: 60 mg : Intramuscular POTENTIAL CONTRAINDICATED INTERACTION: naproxen - Patient no longer on medication Ordered by: Nancy Adamson MD Entered by: Nancy Adamson MD Sat Dec 04, 2016 14:47 , Acknowledged by: Temi Forbes RN Sat Dec 04, 2016 14:49 Documented as given by: Temi Forbes RN Sat Dec 04, 2016 15:04 Patient, Medication, Dose, Route and Time verified prior to administration. IM medication, Amount given: 60MG, Medication administered to left buttock, Correct patient, time, route, dose and medication confirmed prior to administration, Patient advised of actions and side-effects prior to administration, Allergies confirmed and medications reviewed prior to administration, Patient in position of comfort, Side rails up, Cart in lowest position, Family at bedside. HPI NECK PAIN (16:23 LHOD) CHIEF COMPLAINT: Patient presents for evaluation of neck injury, Patient presents for evaluation of neck pain. HISTORIAN: History provided by patient. TIME COURSE: PT REPORTS [facility] WAS [facility] [employer] [facility] WHEN A BOX FELL STRIKING THE RIGHT SIDE OF HER HEAD / NECK. SHE REPORTS OVER THE NEXT FEW DAYS SHE DEVELOPED INCREASING PAIN. SHE REPORTS SHE HAD A CT OF HER NECK THIS PAST TUESDAY. IT REVEALED SIGNIFICANT SPINAL STENOSIS W/O ACUTE FRACTURE. PT REPORTS SHE CONTINUES TO HAVE SEVERE RIGHT NECK / SHOULDER PAIN. REPORTS NAPROXEN AND FLEXERIL DO NOT DECREASE PAIN AT ALL. TYLENOL #3 WITH MINIMAL RELIEF. SHE REQUESTS A SLING OR SOMETHING TO TAKE WEIGHT OF HER RIGHT ARM FROM PULLING ON HER NECK. ASSOCIATED WITH: Associated with back pain, to the upper back, No associated focal deficit, No associated focal weakness, No associated headache, No associated nausea, No associated numbness, No associated open wounds, No Over 65 years old, No associated vomiting. EXACERBATED BY: Patient's condition exacerbated by movement of head. RELIEVED BY: Patient's condition relieved by nothing. &a-1R&a+25V*p+0X*q4847V*c202B*c15G*c2P*p-0X&a-25V&a+1R Name: Tania Saldivar : 1960 F56 MedRec: [id number] AcctNum: [id number] Prepared: Miguelito Dec 04, 2016 17:07 by Interface Page 4 of 7 pMD [facility] EMERGENCY RECORD ROS (16:39 LHOD) CONSTITUTIONAL: Historian denies fever. EYES: Negative eye review of systems. ENT: Negative ears, nose, throat review of systems. CARDIOVASCULAR: Historian denies chest pain. RESPIRATORY: Historian denies shortness of breath. GI: Historian denies abdominal pain, denies nausea, denies vomiting. MUSCULOSKELETAL: Historian reports back pain, reports neck pain, reports spasms. RIGHT SHOULDER PAINS. SKIN: Historian reports rash, ROSACEA OF FACE. NEUROLOGIC: Historian denies focal weakness, denies headache. HEMO/LYMPHATIC: Historian denies easy bruising. NOTES: All systems reviewed, negative except as described above. PAST MEDICAL HISTORY MEDICAL HISTORY: Flu vaccine up to date, Date of immunization: 2014, Tetanus immunization up to date, hyperlipidemia, high cholesterolHTN, CAD, diabetes, includes history of obesity. CONSTIPATION,. (14:25 LWAL) FEMALE SURGICAL HISTORY: veins stripping, vericous veins, cleft palate, DNC ABOUT 13 YEARS AGO SHE HAS NOT HAD A PERIOD SINCE. (14:25 LWAL) PSYCHIATRIC HISTORY: Notes: nervous breakdown 1980s. (14:25 LWAL) SOCIAL HISTORY: Patient denies alcohol use, Patient denies drug use, Patient has no smoking history, Lives at home, with family. (14:25 LWAL) NOTES: Nursing records reviewed. (16:58 LHOD) PHYSICAL EXAM (16:56 LHOD) CONSTITUTIONAL: Vital Signs Reviewed, Patient afebrile, Pulse, tachycardic, Blood pressure, hypertensive, Respiratory rate, Normal pulse oximetry, Patient appears, in severe pain distress, Patient alert and oriented to person, place and time, MARKED DIFFUSE FACIAL ERYTHEMA. EYES: Pupils equally round and reactive to light, Extraocular muscles intact. NECK: Trachea midline, TENDER DIFFUSELY POSTERIOR NECK WITH RIGHT TRAPEZIUS MUSCLE TENDERNESS. PT HOLDS HEAD TILTED TO RIGHT. RESPIRATORY CHEST: Respiratory exam included findings of no respiratory distress, Breath sounds clear. CARDIOVASCULAR: Cardiovascular exam included findings of heart rate regular rate and rhythm. ABDOMEN FEMALE: Abdominal exam included findings of abdomen &a-1R&a+25V*p+0X*w8853I*c202B*c15G*c2P*p-0X&a-25V&a+1R Name: Tania Saldivar : 1960 F56 MedRec: [id number] AcctNum: [id number] Prepared: Sat Dec 04, 2016 17:07 by Interface Page 5 of 7 pMD [facility] EMERGENCY RECORD nontender. BACK: Tenderness, paraspinal to the right upper back. UPPER EXTREMITY: Upper extremity exam normal, RIGHT SHOULDER NORMAL ROM, BUT DISCOMFORT OF RIGHT SUPRACLAVICULAR / TRAPEZIUS MUSCLE. LOWER EXTREMITY: Lower extremity exam normal. NEURO: Neuro exam findings include patient oriented to person, place and time, Speech normal. SKIN: Rash present, FACIAL ERYTHEMA---PT REPORTS FROM [facility]. EVENTS TRANSFER: Triage to Emergency Waiting. (Sat Dec 04, 2016 14:18 LWAL) Emergency Waiting to Main ED -05. (14:29 LWAL) Removed from Emergency Main ED -05. (15:28 LWAL) PROBLEM LIST No recorded problems DIAGNOSIS (14:49 LHOD) FINAL: PRIMARY: CERVICAL STRAIN WITH SPINAL STENOSIS, ADDITIONAL: RIGHT TRAPEZIUS MUSCLE SPASM. DISPOSITION PATIENT: Disposition Type: Discharge, Disposition: *Discharge Home, Condition: Good. (14:49 LHOD) Disposition Transport: Car, Patient left the department. (15:28 LWAL) INSTRUCTION (14:52 LHOD) DISCHARGE: SPRAIN CERVICAL. FOLLOWUP: MD Susi, Lisa, [facility], [address], [facility] [address], [facility] [address], , [facility] [address] [facility] [address] [address], , Follow up with Primary Care Physician in 2-3 days. SPECIAL: MOIST HEAT TO AREA. TYLENOL #3 2 EVERY 4 HOURS NEEDED FOR PAIN. TAKE ANTI-INFLAMMATORY MEDICATION, VOLTAREN, IF YOU NO LONGER ARE TAKING NAPROXEN. *RETURN IF WORSE Follow-up with your PCP. PRESCRIPTION Robaxin oral: TABLET : 750 mg : ORAL : Quantity: 1 Unit: tab(s) Route: ORAL Schedule: every 6 hours PRN Dispense: 16 May substitute. Refills: No Refills . (14:49 LHOD) NOTES: No Refills. (14:49 LHOD) Tylenol-Codeine #3: TABLET : 300 mg-30 mg : ORAL : Quantity: 1-2 Unit: tab(s) Route: ORAL Schedule: every 4 hours prn &a-1R&a+25V*p+0X*w9245N*c202B*c15G*c2P*p-0X&a-25V&a+1R Name: Tania Saldivar : 1960 F56 MedRec: [id number] AcctNum: [id number] Prepared: Miguelito Dec 04, 2016 17:07 by Interface Page 6 of 7 pMD [facility] EMERGENCY RECORD Dispense: 16 May substitute. Refills: No Refills . (14:49 LHOD) NOTES: ^s=No Refills No Refills. (14:49 LHOD) Voltaren-XR: TABLET, EXTENDED RELEASE 24 HR : 100 mg : ORAL : Quantity: 1 Unit: tab(s) Route: ORAL Schedule: once a day (in the morning) Dispense: 10 May substitute. Refills: No Refills POTENTIAL CONTRAINDICATED INTERACTION: Toradol intramuscular (ketorolac tromethamine) Override Rationale: Patient no longer on medication. (14:50 LHOD) NOTES: No Refills. (14:50 LHOD) IMAGING (15:42 LWAL) *DISCHARGE INSTRUCTIONS RECEIPT: Image captured from scanner. Page 2 added. Image captured from scanner. *SUPPLY CHARGE SHEET: Image captured from scanner. ADMIN DIGITAL SIGNATURE: ERIN Forbes Ladonna. (15:47 LWAL) MD Adamson Lefayne. (16:59 LHOD) Bansal: LHOD=MD Adamson Lefayne LWAL=ERIN Forbes Ladonna &a-1R&a+25V*p+0X*z7125L*c202B*c15G*c2P*p-0X&a-25V&a+1R Name: Tania Saldivar Kika : 1960 F56 MedRec: [id number] AcctNum: [id number] Prepared: Miguelito Dec 04, 2016 17:07 by Interface Page 7 of 7 pMD MTDD
== END 2016-12-04 15:20 | disposition home or self-care (01) ==
LOC: MADERS 13:32
DX: S16.1XXA Strain of muscle, fascia and tendon at neck level, initial encounter (principal); M48.02 Spinal stenosis, cervical region; M62.838 Other muscle spasm; I10 Essential (primary) hypertension; E78.5 Hyperlipidemia, unspecified; E78.00 Pure hypercholesterolemia, unspecified; I25.10 Atherosclerotic heart disease of native coronary artery without angina pectoris; E11.9 Type 2 diabetes mellitus without complications; E66.9 Obesity, unspecified; K59.00 Constipation, unspecified; Z79.84 Long term (current) use of oral hypoglycemic drugs; Z79.899 Other long term (current) drug therapy; W20.8XXA Other cause of strike by thrown, projected or falling object, initial encounter
CPT/HCPCS: 96372; J1885

== ENCOUNTER 2016-12-20 17:35 | Outpatient (CLI) | payer MEDICARE ==
[2016-12-20 18:14] LABS: #Basophils 0.1 thou/uL (0.0-0.2); #Eosinphils 0.2 thou/uL (0.0-0.7); #Monocytes 0.7 thou/uL (0.11-0.59); #Neutrophils 7.4 thou/uL (1.40-6.50); %Basophils 0.7 % (0.0-1.0); %Eosinophils 2.1 % (0.0-10.0); %Lymphocytes 19.3 % (21.0-51.0); %Monocytes 6.8 % (0.0-10.0); %Neutrophils 71.3 % (42.0-75.0); Hemoglobin 13.8 g/dL (12.0-16.0); Mean Corpuscular HGB CONC 33.7 g/dL (32.0-36.0); Mean Corpuscular Hemoglobin 30.4 pg (27.0-31.0); Mean Corpuscular Volume 90.3 fl (81.0-99.0); Mean Platelet Volume 9.7 fL (7.4-10.4); Platelet Count 155 thou/uL (130-400); RBC Distribution Width 12.5 % (11.5-14.5); Red Blood Cell (RBC) Count 4.55 mill/uL (4.20-5.40); White Blood Cell (WBC) Count 10.3 thou/uL (4.8-10.8)
[2016-12-20 18:29] LABS: ALT (SGPT) 29 U/L (0-55); AST (SGOT) 17 U/L (5-34); Alkaline Phosphatase 97 U/L (40-150); Anion Gap 18 mmol/L (10-20); BUN (Urea Nitrogen) 13 mg/dL (9.8-20.1); Bilirubin, Total 0.3 mg/dL (0.2-1.2); Calc. Creatinine Clearance 0 mL/min (70-130); Calcium 8.7 mg/dL (7.8-10.44); Carbon Dioxide 24 mmol/L (22-29); Cardiac Risk 6.6 (Less than 4.5); Chloride 101 mmol/L (98-107); Cholesterol 276 mg/dL (< 200 Desired); Estimated GFR-MDRD 83; Globulin 2.8 g/dL (2.4-3.5); Glucose 233 mg/dL (70-105); HDL Cholesterol 42 mg/dL (>60 Neg Risk); Protein, Total 6.8 g/dL (6.0-8.3); Sodium 139 mmol/L (136-145); Triglycerides 461 mg/dL (Less than 150)
[2016-12-20 18:30] LABS: Hemoglobin A1c 9.2 % (4.0-6.0)
[2016-12-20 18:43] LABS: Thyroid Stimulating Hormone 3.6403 uIU/mL (0.35-4.94)
[2016-12-21 18:11] LABS: Iron 59 ug/dL (50-170)
[2016-12-21 18:30] LABS: Creatinine, Urine 49.16 mg/dL (47-110); Ferritin 305.57 ng/mL (10-291); Microalbumin Urine Less than 1.0 mg/dL (0.5-50.0); Microalbumin/Creat Ratio 20.3 mg/g (Less than 30)
== END 2016-12-20 17:36 | disposition home or self-care (01) ==
LOC: MADLAB 17:35
PROVIDERS: ATTEND Family Medicine
DX: I10 Essential (primary) hypertension (principal); E11.9 Type 2 diabetes mellitus without complications; E03.9 Hypothyroidism, unspecified; K59.00 Constipation, unspecified; D63.8 Anemia in other chronic diseases classified elsewhere; E11.29 Type 2 diabetes mellitus with other diabetic kidney complication
CPT/HCPCS: 80053; 80061; 82043; 82728; 83036; 83540; 84443; 85025

== ENCOUNTER 2017-03-01 17:05 | Outpatient (CLI) | payer MEDICARE ==
[2017-03-01 17:20] LABS: #Basophils 0.1 thou/uL (0.0-0.2); #Eosinphils 0.1 thou/uL (0.0-0.7); #Lymphocytes 2.6 thou/uL (1.20-3.40); #Monocytes 0.5 thou/uL (0.11-0.59); #Neutrophils 6.2 thou/uL (1.40-6.50); %Basophils 0.6 % (0.0-1.0); %Eosinophils 1.2 % (0.0-10.0); %Monocytes 5.7 % (0.0-10.0); %Neutrophils 65.5 % (42.0-75.0); Hemoglobin 15.6 g/dL (12.0-16.0); Mean Corpuscular HGB CONC 32.3 g/dL (32.0-36.0); Mean Corpuscular Hemoglobin 29.8 pg (27.0-31.0); Mean Corpuscular Volume 92.3 fl (81.0-99.0); Mean Platelet Volume 10.4 fL (7.4-10.4); Platelet Count 203 thou/uL (130-400); RBC Distribution Width 12.3 % (11.5-14.5); Red Blood Cell (RBC) Count 5.23 mill/uL (4.20-5.40); White Blood Cell (WBC) Count 9.5 thou/uL (4.8-10.8)
[2017-03-01 17:29] LABS: Hemoglobin A1c 9.7 % (4.0-6.0)
[2017-03-01 17:39] LABS: ALT (SGPT) 18 U/L (0-55); AST (SGOT) 15 U/L (5-34); Albumin 4.3 g/dL (3.5-5.0); Alkaline Phosphatase 111 U/L (40-150); Anion Gap 19 mmol/L (10-20); BUN (Urea Nitrogen) 24 mg/dL (9.8-20.1); Bilirubin, Total 0.3 mg/dL (0.2-1.2); Calc. Creatinine Clearance 0 mL/min (70-130); Calcium 9.1 mg/dL (7.8-10.44); Carbon Dioxide 24 mmol/L (22-29); Cardiac Risk 8.4 (Less than 4.5); Chloride 97 mmol/L (98-107); Cholesterol 309 mg/dL (< 200 Desired); Estimated GFR-MDRD 50; Globulin 3.5 g/dL (2.4-3.5); Glucose 435 mg/dL (70-105); HDL Cholesterol 37 mg/dL (>60 Neg Risk); Potassium 4.5 mmol/L (3.5-5.1); Protein, Total 7.8 g/dL (6.0-8.3); Sodium 135 mmol/L (136-145); Triglycerides 702 mg/dL (Less than 150)
== END 2017-03-01 17:06 | disposition home or self-care (01) ==
LOC: MADLAB 17:05
PROVIDERS: ATTEND Neurological Surgery
DX: E78.5 Hyperlipidemia, unspecified (principal); E03.9 Hypothyroidism, unspecified; E11.9 Type 2 diabetes mellitus without complications; I10 Essential (primary) hypertension
CPT/HCPCS: 80053; 80061; 83036; 84443; 85025

== ENCOUNTER 2017-05-02 12:24 | Outpatient (CLI) | payer MEDICARE ==
[2017-05-02 12:40] LABS: #Eosinphils 0.2 thou/uL (0.0-0.7); #Lymphocytes 2.7 thou/uL (1.20-3.40); #Monocytes 0.6 thou/uL (0.11-0.59); #Neutrophils 5.7 thou/uL (1.40-6.50); %Basophils 0.5 % (0.0-1.0); %Eosinophils 1.7 % (0.0-10.0); %Lymphocytes 29.4 % (21.0-51.0); %Monocytes 6.2 % (0.0-10.0); %Neutrophils 62.1 % (42.0-75.0); Hemoglobin 14.5 g/dL (12.0-16.0); Mean Corpuscular HGB CONC 32.3 g/dL (32.0-36.0); Mean Corpuscular Hemoglobin 29.6 pg (27.0-31.0); Mean Corpuscular Volume 91.6 fl (81.0-99.0); Mean Platelet Volume 10.9 fL (7.4-10.4); Platelet Count 157 thou/uL (130-400); Red Blood Cell (RBC) Count 4.89 mill/uL (4.20-5.40); White Blood Cell (WBC) Count 9.1 thou/uL (4.8-10.8)
[2017-05-02 12:51] LABS: Hemoglobin A1c 10.1 % (4.0-6.0)
[2017-05-02 12:53] LABS: ALT (SGPT) 17 U/L (8-55); AST (SGOT) 13 U/L (5-34); Albumin 3.7 g/dL (3.5-5.0); Alkaline Phosphatase 105 U/L (40-150); Anion Gap 19 mmol/L (10-20); BUN (Urea Nitrogen) 13 mg/dL (9.8-20.1); Bilirubin, Total 0.4 mg/dL (0.2-1.2); Calc. Creatinine Clearance 0 mL/min (70-130); Calcium 8.4 mg/dL (7.8-10.44); Carbon Dioxide 23 mmol/L (22-29); Cardiac Risk 6.3 (Less than 4.5); Chloride 100 mmol/L (98-107); Cholesterol 196 mg/dl (< 200 Desired); Estimated GFR-MDRD 85; Globulin 3.6 g/dL (2.4-3.5); Glucose 220 mg/dL (70-105); HDL Cholesterol 31 mg/dL (>60 Neg Risk); LDL Cholesterol, Calculated 117 mg/dL; Potassium 3.6 mmol/L (3.5-5.1); Protein, Total 7.3 g/dL (6.0-8.3); Sodium 138 mmol/L (136-145); Triglycerides 240 mg/dL (Less than 150)
== END 2017-05-02 12:25 | disposition home or self-care (01) ==
LOC: MADLAB 12:24
PROVIDERS: ATTEND Family Medicine
DX: E11.9 Type 2 diabetes mellitus without complications (principal); E78.5 Hyperlipidemia, unspecified; E03.9 Hypothyroidism, unspecified; I10 Essential (primary) hypertension
CPT/HCPCS: 36415; 80053; 80061; 83036; 84443; 85025

== ENCOUNTER 2018-02-12 15:18 | Emergency (ER) | payer MEDICARE ==
[2018-02-12 15:56] LABS: Bilirubin Negative (Negative); Blood, Urine Negative (Negative); Glucose, Urine (Dipstick) 500 mg/dL (Negative); Leukocyte Trace (Negative); Nitrite Negative (Negative); Protein, Urine (Dipstick) Trace mg/dL (Neg-Trace); Urobilinogen 0.2 mg/dL (0.2-1.0)
[2018-02-12 15:57] LABS: Bacteria/HPF 1+ HPF (None Seen); Clarity Hazy (Clear); RBC/HPF 0-3 HPF (0-3); Specific Gravity, Urine 1.031 (1.002-1.036); Yeast-All Forms 1+ HPF (None Seen)
[2018-02-12] MEDS ORDERED: Naproxen 500 MG TAB ONE (18:08)
[2018-02-12] MEDS ORDERED: HYDROcodone/Acetaminophen 10/325 mg Tablet ONE (18:08)
[2018-02-12] MEDS ORDERED: Sulfameth/Trimethoprim DS 800-160mg TAB ONE (18:08)
== END 2018-02-12 18:14 | disposition home or self-care (01) ==
LOC: MADERS 15:18
DX: N39.0 Urinary tract infection, site not specified (principal); I25.10 Atherosclerotic heart disease of native coronary artery without angina pectoris; E11.9 Type 2 diabetes mellitus without complications; E87.5 Hyperkalemia; E66.9 Obesity, unspecified; K59.00 Constipation, unspecified; I10 Essential (primary) hypertension; Z79.899 Other long term (current) drug therapy
CPT/HCPCS: 81001; 87086; 99284

== ENCOUNTER 2018-06-22 08:56 | Outpatient (CLI) | payer MEDICARE ==
--- NOTE | 2018-06-22 11:26 | RAD ---
LUMBAR SPINE THREE VIEWS: History: Back pain x one year. Comparison: None. FINDINGS: Five lumbar type vertebral bodies. Vertebral body height is maintained. There is no fracture. Minimal osteophyte formation. No spondylolisthesis or spondylosis. IMPRESSION: No significant degenerative change. Minimal osteophyte formation. If there is concern, consider MRI. POS: GOLDEN
--- NOTE | 2018-06-22 11:37 | RAD ---
THORACIC SPINE THREE VIEWS: History: Mid back pain x 1 year. Comparison: None. FINDINGS: Limited evaluation of the upper thoracic spine on lateral projection. Vertebral body height is mainta ined. No fracture. There is osteophyte formation with mild loss of disc space height. IMPRESSION: Mild degenerative changes. MRI is probably warranted. POS: GOLDEN
[2018-06-22 13:59] LABS: Anion Gap 18 mmol/L (10-20); BUN (Urea Nitrogen) 13 mg/dL (9.8-20.1); Calc. Creatinine Clearance 0 mL/min (70-130); Calcium 9.1 mg/dL (7.8-10.44); Carbon Dioxide 23 mmol/L (22-29); Cardiac Risk 6.4 (Less than 4.5); Chloride 100 mmol/L (98-107); Cholesterol 257 mg/dl (< 200 Desired); Estimated GFR-MDRD 78; Glucose 310 mg/dL (70-105); HDL Cholesterol 40 mg/dL (>60 Neg Risk); LDL Cholesterol, Calculated 165 mg/dL; Potassium 4.2 mmol/L (3.5-5.1); Sodium 137 mmol/L (136-145); Triglycerides 261 mg/dL (Less than 150)
== END 2018-06-22 08:57 | disposition home or self-care (01) ==
LOC: MADLAB 08:56
PROVIDERS: ATTEND Family Medicine
DX: M54.5 Low back pain (principal); E11.65 Type 2 diabetes mellitus with hyperglycemia; E78.2 Mixed hyperlipidemia; I10 Essential (primary) hypertension; M47.894 Other spondylosis, thoracic region
CPT/HCPCS: 36415; 72072; 72100; 80048; 80061; 83036; 84443

== ENCOUNTER 2018-12-19 11:41 | Outpatient (CLI) | payer MEDICARE ==
[2018-12-19 12:21] LABS: #Basophils 0.1 thou/uL (0.0-0.2); #Eosinphils 0.1 thou/uL (0.0-0.7); #Monocytes 0.6 thou/uL (0.11-0.59); #Neutrophils 7.7 thou/uL (1.40-6.50); %Basophils 0.7 % (0.0-1.0); %Eosinophils 0.7 % (0.0-10.0); %Lymphocytes 19.4 % (21.0-51.0); %Monocytes 5.9 % (0.0-10.0); %Neutrophils 73.3 % (42.0-75.0); Hemoglobin 15.3 g/dL (12.0-16.0); Mean Corpuscular HGB CONC 32.1 g/dL (32.0-36.0); Mean Corpuscular Hemoglobin 28.9 pg (27.0-31.0); Mean Platelet Volume 9.7 fL (7.4-10.4); Platelet Count 187 thou/uL (130-400); Red Blood Cell (RBC) Count 5.29 mill/uL (4.20-5.40); White Blood Cell (WBC) Count 10.5 thou/uL (4.8-10.8)
[2018-12-19 12:30] LABS: Anion Gap 17 mmol/L (10-20); BUN (Urea Nitrogen) 11 mg/dL (9.8-20.1); Calc. Creatinine Clearance 0 mL/min (70-130); Calcium 8.7 mg/dL (7.8-10.44); Carbon Dioxide 25 mmol/L (22-29); Chloride 99 mmol/L (98-107); Estimated GFR-MDRD 61; Glucose 462 mg/dL (70-105); Potassium 3.8 mmol/L (3.5-5.1); Sodium 137 mmol/L (136-145)
--- NOTE | 2018-12-19 13:46 | RAD ---
PA AND LATERAL CHEST: Date: 12/19/18 HISTORY: Upper respiratory tract infection with cough and congestion. COMPARISON: 11/26/16. FINDINGS: The cardiac silhouette and pulmonary vasculature are within normal limits. The lungs are clear. Degen erative changes are seen in the thoracic spine. There are radiopaque densities overlying the upper me diastinum, which could be related to overlying artifact or possibly surgical clips. This is difficult to further delineate and this area is not well seen on the lateral view. Degenerative changes are se en in the spine. IMPRESSION: No acute cardiopulmonary process. POS: [facility]
== END 2018-12-19 11:42 | disposition home or self-care (01) ==
LOC: MADLABBHPM 11:41
PROVIDERS: ATTEND Family Medicine
DX: J06.9 Acute upper respiratory infection, unspecified (principal); R00.0 Tachycardia, unspecified
CPT/HCPCS: 36415; 71046; 80048; 84443; 85025; 93005; 93010

== ENCOUNTER 2020-02-20 13:47 | Emergency (ER) | payer MEDICARE ==
[2020-02-20 14:22] LABS: #Eosinphils 0.1 thou/uL (0.0-0.7); #Lymphocytes 1.7 thou/uL (1.20-3.40); #Monocytes 0.6 thou/uL (0.11-0.59); #Neutrophils 5.9 thou/uL (1.40-6.50); %Basophils 0.6 % (0.0-1.0); %Eosinophils 1.3 % (0.0-10.0); %Lymphocytes 20.3 % (21.0-51.0); %Monocytes 7.1 % (0.0-10.0); %Neutrophils 70.8 % (42.0-75.0); Hemoglobin 14.1 g/dL (12.0-16.0); Mean Corpuscular HGB CONC 32.1 g/dL (32.0-36.0); Mean Corpuscular Hemoglobin 29.2 pg (27.0-31.0); Mean Corpuscular Volume 90.9 fL (78.0-98.0); Mean Platelet Volume 9.4 fL (7.4-10.4); Platelet Count 150 thou/uL (130-400); RBC Distribution Width 11.6 % (11.5-14.5); Red Blood Cell (RBC) Count 4.85 mill/uL (4.20-5.40); White Blood Cell (WBC) Count 8.3 thou/uL (4.8-10.8)
[2020-02-20 14:35] LABS: Bilirubin Negative (Negative); Blood, Urine Negative (Negative); Glucose, Urine (Dipstick) >=1000 mg/dL (Negative); Leukocyte Trace (Negative); Nitrite Negative (Negative); Protein, Urine (Dipstick) Trace mg/dL (Neg-Trace); Urobilinogen 0.2 mg/dL (Less than 2)
[2020-02-20 14:38] LABS: Clarity Hazy (Clear)
[2020-02-20 14:43] LABS: ALT (SGPT) 18 U/L (8-55); AST (SGOT) 13 U/L (5-34); Albumin 3.8 g/dL (3.5-5.0); Alkaline Phosphatase 92 U/L (40-110); Anion Gap 16 mmol/L (10-20); BUN (Urea Nitrogen) 17 mg/dL (9.8-20.1); Bilirubin, Total 0.2 mg/dL (0.2-1.2); Calc. Creatinine Clearance 0 mL/min (70-130); Calcium 8.5 mg/dL (7.8-10.44); Carbon Dioxide 25 mmol/L (22-29); Chloride 100 mmol/L (98-107); Estimated GFR-MDRD 70; Globulin 3.9 g/dL (2.4-3.5); Glucose 275 mg/dL (70-105); Potassium 4.1 mmol/L (3.5-5.1); Protein, Total 7.7 g/dL (6.0-8.3); Sodium 137 mmol/L (136-145)
[2020-02-20 14:44] LABS: Bacteria/HPF Rare-Few HPF (None Seen); Mucous/LPF 1+ LPF (<2+); RBC/HPF 0-3 HPF (0-3)
--- NOTE | 2020-02-20 14:44 | RAD ---
PORTABLE CHEST 1 VIEW: Date: 02/20/2020 Time: 1434 hours HISTORY: Tachycardia. COMPARISON: 12/19/2018. FINDINGS: The heart size is borderline. The lungs are well expanded without lobar consolidation, pneumothoraces , katina pulmonary edema, or pleural effusions. IMPRESSION: No acute process. POS: [facility]
== END 2020-02-20 17:15 | disposition home or self-care (01) ==
LOC: MADERS 13:47
DX: I10 Essential (primary) hypertension (principal); E11.65 Type 2 diabetes mellitus with hyperglycemia; I25.10 Atherosclerotic heart disease of native coronary artery without angina pectoris; E66.9 Obesity, unspecified; Z79.84 Long term (current) use of oral hypoglycemic drugs; Z79.899 Other long term (current) drug therapy; Z79.891 Long term (current) use of opiate analgesic
CPT/HCPCS: 36415; 71045; 80053; 81003; 81015; 83605; 83880; 84443; 84484; 85025; 93005; 96360; 96361

== ENCOUNTER 2020-07-03 10:05 | Emergency (ER) | payer MEDICARE ==
[2020-07-03 12:13] LABS: Bilirubin Negative (Negative); Blood, Urine Negative (Negative); Glucose, Urine (Dipstick) >=1000 mg/dL (Negative); Ketone, Urine Negative (Negative); Leukocyte Trace (Negative); Nitrite Negative (Negative); Protein, Urine (Dipstick) Negative (Neg-Trace); Urobilinogen 0.2 mg/dL (Less than 2); pH, Urine 5.5 (5.0-9.0)
[2020-07-03] MEDS ORDERED: predniSONE 20 MG TAB ONE (12:13)
[2020-07-03] MEDS ORDERED: Morphine 4 MG/ML VIAL ONE (12:13)
[2020-07-03 12:14] LABS: Clarity Hazy (Clear)
[2020-07-03 12:21] LABS: Bacteria/HPF Rare-Few HPF (None Seen); RBC/HPF 0-3 HPF (0-3); Squamous Epithelial 0-3 HPF (0-3)
[2020-07-03 12:45] LABS: #Basophils 0.1 thou/uL (0.0-0.2); #Eosinphils 0.1 thou/uL (0.0-0.7); #Lymphocytes 2.4 thou/uL (1.20-3.40); #Monocytes 0.5 thou/uL (0.11-0.59); #Neutrophils 5.6 thou/uL (1.40-6.50); %Eosinophils 1.2 % (0.0-10.0); %Lymphocytes 27.5 % (21.0-51.0); %Monocytes 5.6 % (0.0-10.0); %Neutrophils 64.7 % (42.0-75.0); Hemoglobin 13.6 g/dL (12.0-16.0); Mean Corpuscular Hemoglobin 28.7 pg (27.0-31.0); Mean Corpuscular Volume 89.9 fL (78.0-98.0); Platelet Count 200 thou/uL (130-400); RBC Distribution Width 12.3 % (11.5-14.5); Red Blood Cell (RBC) Count 4.72 mill/uL (4.20-5.40); White Blood Cell (WBC) Count 8.7 thou/uL (4.8-10.8)
[2020-07-03 12:57] LABS: INR-International Normal Ratio 0.9; Prothrombin Time 12.3 sec (12.0-14.7)
[2020-07-03 13:05] LABS: ALT (SGPT) 20 U/L (8-55); AST (SGOT) 15 U/L (5-34); Albumin 3.8 g/dL (3.5-5.0); Alkaline Phosphatase 98 U/L (40-110); Anion Gap 15 mmol/L (10-20); BUN (Urea Nitrogen) 14 mg/dL (9.8-20.1); Bilirubin, Total 0.3 mg/dL (0.2-1.2); Calc. Creatinine Clearance 0 mL/min (70-130); Calcium 8.4 mg/dL (7.8-10.44); Carbon Dioxide 24 mmol/L (22-29); Chloride 100 mmol/L (98-107); Estimated GFR-MDRD 77; Globulin 3.8 g/dL (2.4-3.5); Glucose 264 mg/dL (70-105); Lipase 35 U/L (8-78); Potassium 4.2 mmol/L (3.5-5.1); Protein, Total 7.6 g/dL (6.0-8.3); Sodium 135 mmol/L (136-145)
--- NOTE | 2020-07-03 13:19 | CT ---
CT ABDOMEN AND PELVIS WITHOUT CONTRAST: Date: 07/03/2020 PROVIDED CLINICAL HISTORY: Chronic back pain, worsening in last week. FINDINGS: No comparison examinations. The visualized lung bases are free of significant opacity. The solid abdominal organs are suboptimally evaluated in the absence of IV contrast material, but dem onstrate an unremarkable unenhanced CT appearance. There is no evidence for urinary tract calculi or hydronephrosis. There is no bowel dilatation, inflammatory fat stranding, free fluid, or lymph node enlargement appar ent. Left adrenal adenoma is noted. The gallbladder is surgically absent. There is no evidence for appendicitis. The osseous structures demonstrate no concerning lytic or blastic lesions. Lumbar spine degenerative changes are seen. IMPRESSION: No evidence for urinary tract calculi or hydronephrosis. POS: [facility]
[2020-07-03] MEDS ORDERED: Amlodipine 5 MG TAB ONE (13:29)
--- NOTE | 2020-07-03 13:58 | RAD ---
Exam: Chest one view HISTORY:Chest pain. Comparison: 02/20/2020 FINDINGS: Cardiac silhouette: Normal Aorta: Unremarkable Pulmonary vessels: Normal Costophrenic angles: Clear LUNGS: No masses or consolidation. Pneumothorax: None Osseous abnormalities: None IMPRESSION: No acute cardiopulmonary process.
[2020-07-03] MEDS ORDERED: Sodium Chloride 0.9% 1,000 ML ONE (14:30)
[2020-07-03] MEDS ORDERED: cefTRIAXone\\ROCEPHIN 1 GM VIAL ONE (15:39)
== END 2020-07-03 16:20 | disposition short-term general hospital (02) ==
LOC: MADERS 10:05
DX: N39.0 Urinary tract infection, site not specified (principal); M54.5 Low back pain; R00.0 Tachycardia, unspecified; I10 Essential (primary) hypertension; E78.5 Hyperlipidemia, unspecified; I25.10 Atherosclerotic heart disease of native coronary artery without angina pectoris; E11.9 Type 2 diabetes mellitus without complications; E66.9 Obesity, unspecified; Z79.899 Other long term (current) drug therapy; Z79.84 Long term (current) use of oral hypoglycemic drugs
CPT/HCPCS: 71045; 74176; 80053; 81003; 81015; 83690; 83880; 84484; 85025; 85610; 87040; 87086; 93005; 96361; 96372; 96374; J0696; J2270; J7050; J7512

== ENCOUNTER 2020-08-01 14:34 | Emergency (ER) | payer MEDICARE ==
--- NOTE | 2020-08-01 15:54 | RAD ---
XR Chest 1 View Portable HISTORY: Fever COMPARISON: 07/03/2020 FINDINGS: The heart size is at upper limits of normal. The lungs are well expanded without focal area s of consolidation, pneumothorax or pleural effusions. IMPRESSION: No radiographic evidence of acute cardiopulmonary process.
[2020-08-01] MEDS ORDERED: Sodium Chloride 0.9% 1,000 ML ONE ×2 (15:57→17:11)
[2020-08-01 15:59] LABS: #Basophils 0.1 thou/uL (0.0-0.2); #Eosinphils 0.1 thou/uL (0.0-0.7); #Lymphocytes 1.5 thou/uL (1.20-3.40); #Monocytes 0.4 thou/uL (0.11-0.59); #Neutrophils 3.8 thou/uL (1.40-6.50); %Basophils 1.8 % (0.0-1.0); %Eosinophils 1.3 % (0.0-10.0); %Monocytes 7.5 % (0.0-10.0); %Neutrophils 64.5 % (42.0-75.0); Hemoglobin 13.1 g/dL (12.0-16.0); Mean Corpuscular HGB CONC 31.5 g/dL (32.0-36.0); Mean Corpuscular Hemoglobin 28.8 pg (27.0-31.0); Mean Corpuscular Volume 91.2 fL (78.0-98.0); Mean Platelet Volume 8.3 fL (7.4-10.4); Platelet Count 155 thou/uL (130-400); RBC Distribution Width 12.4 % (11.5-14.5); Red Blood Cell (RBC) Count 4.54 mill/uL (4.20-5.40); White Blood Cell (WBC) Count 5.8 thou/uL (4.8-10.8)
[2020-08-01 16:12] LABS: Bilirubin Negative (Negative); Blood, Urine Negative (Negative); Clarity Clear (Clear); Glucose, Urine (Dipstick) 500 mg/dL (Negative); Ketone, Urine Negative (Negative); Leukocyte Negative (Negative); Nitrite Negative (Negative); Protein, Urine (Dipstick) Negative (Neg-Trace); Urobilinogen 0.2 mg/dL (Less than 2); pH, Urine 5.5 (5.0-9.0)
[2020-08-01 16:15] LABS: Prothrombin Time 12.8 sec (12.0-14.7)
[2020-08-01 16:17] LABS: D-Dimer Test 0.29 *mcg/mL (0.27-0.43)
[2020-08-01 16:21] LABS: ALT (SGPT) 16 U/L (8-55); AST (SGOT) 13 U/L (5-34); Albumin 3.7 g/dL (3.5-5.0); Alkaline Phosphatase 99 U/L (40-110); Anion Gap 22 mmol/L (10-20); BUN (Urea Nitrogen) 17 mg/dL (9.8-20.1); Bilirubin, Total 0.2 mg/dL (0.2-1.2); Calc. Creatinine Clearance 0 mL/min (70-130); Calcium 8.3 mg/dL (7.8-10.44); Carbon Dioxide 21 mmol/L (22-29); Chloride 99 mmol/L (98-107); Estimated GFR-MDRD 54; Globulin 3.6 g/dL (2.4-3.5); Potassium 3.8 mmol/L (3.5-5.1); Protein, Total 7.3 g/dL (6.0-8.3); Sodium 138 mmol/L (136-145)
[2020-08-01 16:30] LABS: Glucose 556 mg/dL (70-105)
[2020-08-01 16:56] LABS: CO2 Tension (PvCO2) 47.4 mmHg (40.0-50.0); Calcium, Ionized 1.03 mmol/L (See Comments:); Chloride 104 mmol/L (98-107); Hemoglobin - Calc 15.7 g/dL (12.0-16.0); Potassium 3.9 mmol/L (3.5-5.1); Sodium 140 mmol/L (138-145); T. Carbon Dioxide 29.5 mmol/L (22.0-28.0); vO2 Saturation-calc 99.8 % (60.0-85.0)
[2020-08-01] MEDS ORDERED: Vancomycin 1.5 GRAM/300 ML BAG ONE (17:11)
== END 2020-08-01 18:49 | disposition short-term general hospital (02) ==
LOC: MADERS 14:34
DX: E11.10 Type 2 diabetes mellitus with ketoacidosis without coma (principal); I10 Essential (primary) hypertension; E78.5 Hyperlipidemia, unspecified; I25.10 Atherosclerotic heart disease of native coronary artery without angina pectoris; E66.9 Obesity, unspecified; E78.00 Pure hypercholesterolemia, unspecified; Z79.84 Long term (current) use of oral hypoglycemic drugs; Z79.899 Other long term (current) drug therapy
CPT/HCPCS: 36415; 71045; 80053; 81003; 82330; 82803; 83605; 83880; 84484; 85025; 85379; 85610; 86140; 87040; 93005; 96361; 96365; J3370; J7050